=== PATIENT | male | born 1945 | race Caucasian/White ===

== ENCOUNTER 2019-08-13 09:13 | Outpatient (CLI) | payer MEDICARE, SELFPAY ==
[2019-08-13 09:30] LABS: Basophils Absolute Auto 0.06 K/mm3 (0.00-0.10); Basophils Percent Auto 0.9 % (0.0-1.0); Eosinophils Absolute Auto 0.12 K/mm3 (0.02-0.50); Eosinophils Percent Auto 1.8 % (1.0-6.0); Hematocrit 41.5 % (37.0-46.0); Hemoglobin 12.9 g/dL (12.4-15.3); Immature Granulocyte Absolute 0.06 K/mm3 (0.00-0.00); Immature Granulocyte Percent A 0.9 % (0.0-0.0); Lymphocytes Absolute Auto 1.94 K/mm3 (1.10-4.50); Lymphocytes Percent Auto 28.4 % (18.0-42.0); Mean Corpuscular HGB Conc 31.1 g/dL (32.0-36.0); Mean Platelet Volume 8.5 fl (8.7-11.0); Monocytes Absolute Auto 0.59 K/mm3 (0.10-0.90); Monocytes Percent Auto 8.6 % (2.0-11.0); Neutrophils Absolute Auto 4.1 K/mm3 (1.7-7.2); Neutrophils Percent Auto 59.4 % (50.0-70.0); Platelet Count Result 225 K/mm3 (150-420); Red Blood Count 4.77 M/mm3 (4.70-6.10); Red Cell Distribution Width 13.2 % (11.6-14.4); White Blood Count 6.8 K/mm3 (4.8-10.8)
[2019-08-13 09:40] LABS: Hemoglobin A1C 9.1 % (<5.7)
[2019-08-13 10:33] LABS: Alanine Aminotransferase 24 U/L (16-63); Albumin Level 3.9 g/dL (3.4-5.0); Alkaline Phosphatase 126 U/L (46-116); Anion Gap 13.8 mmol/L (7-16); Aspartate Amino Transferase 17 U/L (15-37); Bilirubin,Total 0.9 mg/dL (0.00-1.00); Blood Urea Nitrogen 23 mg/dL (7-18); Calcium 8.9 mg/dL (8.5-10.1); Carbon Dioxide 28 mmol/L (21-32); Chloride 104 mmol/L (98-108); Cholesterol 128 mg/dL (0-200); Estimated Glomerular Filt Rate 53; Glucose 193 mg/dL (70-99); HDL Direct 38 mg/dL (40-60); LDL Cholesterol Calculated 26 mg/dL (<130); Osmolality Calculated 300 mOsm/kg (285-295); Potassium 4.8 mmol/L (3.5-5.1); Sodium 141 mmol/L (136-145); Total Protein 6.7 g/dL (6.4-8.2); Triglycerides 318 mg/dL (0-150)
== END 2019-08-13 09:14 | disposition home or self-care (01) ==
PROVIDERS: PCP Internal Medicine; Visit Provider Internal Medicine
DX: E78.5 Hyperlipidemia, unspecified (principal); E11.9 Type 2 diabetes mellitus without complications
CPT/HCPCS: 36415; 80053; 80061; 83036; 85025

== ENCOUNTER 2019-11-05 08:34 | Outpatient (CLI) | payer MEDICARE, SELFPAY ==
[2019-11-05 08:54] LABS: Basophils Absolute Auto 0.06 K/mm3 (0.00-0.10); Basophils Percent Auto 0.8 % (0.0-1.0); Eosinophils Absolute Auto 0.15 K/mm3 (0.02-0.50); Hematocrit 36.9 % (37.0-46.0); Hemoglobin 11.2 g/dL (12.4-15.3); Immature Granulocyte Absolute 0.04 K/mm3 (0.00-0.00); Immature Granulocyte Percent A 0.5 % (0.0-0.0); Lymphocytes Absolute Auto 2.19 K/mm3 (1.10-4.50); Lymphocytes Percent Auto 29.4 % (18.0-42.0); Mean Corpuscular HGB Conc 30.4 g/dL (32.0-36.0); Mean Corpuscular Hemoglobin 25.9 pg (27.0-31.0); Mean Corpuscular Volume 85.4 fL (78.0-102.0); Mean Platelet Volume 8.5 fl (8.7-11.0); Monocytes Absolute Auto 0.64 K/mm3 (0.10-0.90); Monocytes Percent Auto 8.6 % (2.0-11.0); Neutrophils Absolute Auto 4.4 K/mm3 (1.7-7.2); Neutrophils Percent Auto 58.7 % (50.0-70.0); Platelet Count Result 277 K/mm3 (150-420); Red Blood Count 4.32 M/mm3 (4.70-6.10); Red Cell Distribution Width 15.2 % (11.6-14.4); White Blood Count 7.4 K/mm3 (4.8-10.8)
[2019-11-05 09:39] LABS: Alanine Aminotransferase 17 U/L (16-63); Albumin Level 3.5 g/dL (3.4-5.0); Alkaline Phosphatase 106 U/L (46-116); Anion Gap 12.4 mmol/L (7-16); Aspartate Amino Transferase 14 U/L (15-37); Bilirubin,Total 0.9 mg/dL (0.00-1.00); Blood Urea Nitrogen 23 mg/dL (7-18); Calcium 8.6 mg/dL (8.5-10.1); Carbon Dioxide 26 mmol/L (21-32); Chloride 105 mmol/L (98-108); Estimated Glomerular Filt Rate 46; Glucose 139 mg/dL (70-99); Osmolality Calculated 293 mOsm/kg (285-295); Potassium 4.4 mmol/L (3.5-5.1); Sodium 139 mmol/L (136-145); Total Protein 6.5 g/dL (6.4-8.2)
== END 2019-11-05 08:35 | disposition home or self-care (01) ==
PROVIDERS: PCP Internal Medicine; Visit Provider Internal Medicine
DX: D64.9 Anemia, unspecified (principal); N18.9 Chronic kidney disease, unspecified
CPT/HCPCS: 36415; 80053; 85025

== ENCOUNTER 2019-11-16 10:22 | Outpatient (CLI) | payer MEDICARE, SELFPAY | END 2019-11-16 10:23 | disposition home or self-care (01) | PROVIDERS: PCP Internal Medicine; Visit Provider Specialist | DX: L85.9 Epidermal thickening, unspecified (principal) | CPT/HCPCS: 88305 ==

== ENCOUNTER 2019-12-09 08:25 | Outpatient (CLI) | payer MEDICARE, SELFPAY ==
[2019-12-09 08:36] LABS: Basophils Absolute Auto 0.08 K/mm3 (0.00-0.10); Basophils Percent Auto 1.1 % (0.0-1.0); Eosinophils Percent Auto 1.4 % (1.0-6.0); Hematocrit 43.3 % (37.0-46.0); Hemoglobin 13.4 g/dL (12.4-15.3); Immature Granulocyte Absolute 0.06 K/mm3 (0.00-0.00); Immature Granulocyte Percent A 0.8 % (0.0-0.0); Lymphocytes Absolute Auto 2.59 K/mm3 (1.10-4.50); Mean Corpuscular HGB Conc 30.9 g/dL (32.0-36.0); Mean Corpuscular Volume 84.1 fL (78.0-102.0); Mean Platelet Volume 8.7 fl (8.7-11.0); Monocytes Absolute Auto 0.68 K/mm3 (0.10-0.90); Monocytes Percent Auto 9.2 % (2.0-11.0); Neutrophils Absolute Auto 3.9 K/mm3 (1.7-7.2); Neutrophils Percent Auto 52.5 % (50.0-70.0); Platelet Count Result 279 K/mm3 (150-420); Red Blood Count 5.15 M/mm3 (4.70-6.10); Red Cell Distribution Width 15.1 % (11.6-14.4); White Blood Count 7.4 K/mm3 (4.8-10.8)
[2019-12-09 08:54] LABS: Hemoglobin A1C 7.8 % (<5.7)
[2019-12-09 09:11] LABS: Alanine Aminotransferase 22 U/L (16-63); Albumin Level 3.7 g/dL (3.4-5.0); Alkaline Phosphatase 118 U/L (46-116); Anion Gap 11.6 mmol/L (7-16); Aspartate Amino Transferase 16 U/L (15-37); Bilirubin,Total 1.1 mg/dL (0.00-1.00); Blood Urea Nitrogen 21 mg/dL (7-18); Calcium 9.3 mg/dL (8.5-10.1); Carbon Dioxide 29 mmol/L (21-32); Chloride 104 mmol/L (98-108); Estimated Glomerular Filt Rate 46; Glucose 178 mg/dL (70-99); Osmolality Calculated 297 mOsm/kg (285-295); Potassium 4.6 mmol/L (3.5-5.1); Sodium 140 mmol/L (136-145)
== END 2019-12-09 08:26 | disposition home or self-care (01) ==
PROVIDERS: PCP Internal Medicine; Visit Provider Internal Medicine
DX: N18.3 Chronic kidney disease, stage 3 (moderate) (principal); E11.9 Type 2 diabetes mellitus without complications
CPT/HCPCS: 36415; 80053; 83036; 85025

== ENCOUNTER 2019-12-11 00:28 | Outpatient (CLI) | payer MEDICARE, SELFPAY ==
[2019-12-11 18:30] LABS: SARS-CoV-2 RNA PCR Negative
== END 2019-12-11 00:29 | disposition home or self-care (01) ==
LOC: ANHCOVIDDT 00:29
PROVIDERS: PCP Internal Medicine; Visit Provider Internal Medicine Gastroenterology
DX: Z01.812 Encounter for preprocedural laboratory examination (principal); Z11.59 Encounter for screening for other viral diseases
CPT/HCPCS: 87635; C9803; U0003

== ENCOUNTER 2019-12-14 01:50 | Day surgery (SDC) | payer MEDICARE, SELFPAY ==
[2019-12-06 14:27] VITALS: BMI 29.6
[2019-12-14 06:53] VITALS: BP 143/71; PULSE 88; RESP 16; TEMP 36.7; O2SAT 96; BMI 30.9
--- NOTE | 2019-12-14 07:02 | P.PNAN_ITS ---
Anes - Initial Pre Proc Eval Procedure: Operation Date: 12/14/19 08:00 Proposed Procedures p Screening Colonoscopy - Jonathan Duong MD Date/Time: 12/14/19 07:02 Surgeon: Jonathan Duong MD Pre Op Diagnosis: hx of Colon Polyps, fm hx of col ca Patient Data Age: 74 Gender: M Height: 1.75 m Weight: 95.1 kg Last Vital Signs Temp 36.7 C 12/14/19 06:53 Pulse 88 12/14/19 06:53 Resp 16 12/14/19 06:53 BP 143/71 H 12/14/19 06:53 Pulse Ox 96 12/14/19 06:53 Allergies Allergy/AdvReac Type Severity Reaction Status Date / Time No Known Allergies Verified 12/14/19 06:50 Home Medications Medication Instructions Recorded Confirmed Type insulin lispro [Humalog KwikPen 8 unit SUBCUT AC 12/06/19 12/14/19 History Insulin] metformin 500 mg PO DAILY 12/06/19 12/06/19 History metoprolol succinate 50 mg PO DAILY 12/06/19 12/06/19 History potassium citrate 10 meq PO DAILY 12/06/19 12/06/19 History rosuvastatin 10 mg PO DAILY 12/06/19 12/06/19 History tamsulosin 0.4 mg PO DAILY 12/06/19 12/06/19 History Patient hx anesthesia problems: none Family hx anesthesia problems: none [facility] Past Medical History Medical History (Updated 12/14/19 @ 07:02 by Temo Bowles DO) Diabetes type 2, controlled History of prostate cancer Hyperlipidemia Hypertension Surgical History Surgical History (Updated 12/14/19 @ 07:02 by Temo Bowles DO) History of coronary artery stent placement [id number], [id number] History of prostatectomy Hx of CABG x2, 2019 Anes - Eval Final PreProcedure Day of Procedure 12/14/19 07:02 Patient weight: obese Heart: regular rate and rhythm Lungs: clear to auscultation and normal air movement Airway: Mallampati scale class III Neurological: alert and oriented Last oral intake: >/= 8 hours ASA classification: III Emergent: no Anesthetic plan: proceed Anesthesia type and monitoring: general GIVS and standard monitoring Informed Consent: The patient's anesthetic plan and its attendant risks and benefits were discussed with the patient/family/POA. Questions were solicited and answers provided to the satisfaction of the patient/family/POA.
[2019-12-14] MEDS: LACTATED RINGERS 1,000 ML 150 ML IV CONT (07:05)
[2019-12-14 07:08] LABS: Glucose Point of Care 158 (65-105)
--- NOTE | 2019-12-14 07:50 | WPDGICN ---
Assessment and Plan Assessment and plan (1) Family history of colon cancer in father: Code(s): Z80.0 - Family history of malignant neoplasm of digestive organs Status: Acute Assessment and Plan: Patient's family history is significant that his father had colon cancer is sister has had colon polyps at 1 point patient had colon polyps on previous exam. Plan is for surveillance colonoscopy now on a 5 year intervals in the future. (2) Hx of CABG: Code(s): Z95.1 - Presence of aortocoronary bypass graft Status: Acute (3) History of coronary artery stent placement: Code(s): Z95.5 - Presence of coronary angioplasty implant and graft Status: Acute GI Consult Note Consult date/time: 12/14/19 07:50 HPI: Xochilt Washburn is a 74 year old male Seen in evaluation at the request of Dr. Arambula. patient presents for screening colonoscopy he states his current weight appetite bowel movements are normal. He has a distant history of colon polyps himself. Family history is significant that his father had colon cancer and a sister has had colon polyps. Patient states that his current weight appetite bowel movements are normal. He denies abdominal pain. Denies any obvious blood in his stools. Review of Systems Review of Systems: All systems reviewed & are unremarkable except as noted in HPI and below PMFSH Past Medical History Medical History Diabetes type 2, controlled History of prostate cancer Hyperlipidemia Hypertension Surgical History Surgical History History of coronary artery stent placement [id number], [id number] History of prostatectomy Hx of CABG x2, 2019 Meds Home Medications and Allergies Home Medications Medication Instructions Recorded Confirmed Type insulin lispro [Humalog KwikPen 8 unit SUBCUT AC 12/06/19 12/14/19 History Insulin] metformin 500 mg PO DAILY 12/06/19 12/06/19 History metoprolol succinate 50 mg PO DAILY 12/06/19 12/06/19 History potassium citrate 10 meq PO DAILY 12/06/19 12/06/19 History rosuvastatin 10 mg PO DAILY 12/06/19 12/06/19 History tamsulosin 0.4 mg PO DAILY 12/06/19 12/06/19 History Allergies Allergy/AdvReac Type Severity Reaction Status Date / Time No Known Allergies Verified 12/14/19 06:50 Vital Signs Vital Signs - 24 hr 12/14/19 06:53 Temperature 98.1 F Pulse Rate 88 Respiratory Rate 16 Blood Pressure 143/71 H Pulse Oximetry 96 Exam Narrative: Exam Narrative: Physical exam reveals patient to be alert. Vital signs stable. HEENT exam unremarkable. Lungs are clear to auscultation and percussion. Heart is without murmur or extra sounds. Abdominal exam bowel sounds are present soft nontender with no hepatosplenomegaly. Digital external rectal exam normal.
[2019-12-14] MEDS: SIMETHICONE ORAL SUSPENSION 20 MG/0.3 ML 30 ML BOTTLE 0.6 ML IRRIGATION (08:07)
[2019-12-14 08:19] VITALS: BP 125/63; PULSE 88; RESP 16; O2SAT 96
[2019-12-14 08:29] VITALS: BP 129/71; PULSE 83; RESP 20; O2SAT 96
[2019-12-14 08:39] VITALS: BP 134/79; PULSE 76; RESP 22; O2SAT 99
[2019-12-14 08:40] LABS: Glucose Point of Care 146 (65-105)
== END 2019-12-14 08:52 | disposition home or self-care (01) ==
PROVIDERS: PCP Internal Medicine; Visit Provider Internal Medicine Gastroenterology
PROC: 0DJD8ZZ Inspection of Lower Intestinal Tract, Via Natural or Artificial Opening Endoscopic (ICD-10-PCS; CPT 45378; principal; 2019-12-14 08:00)
DX: Z12.11 Encounter for screening for malignant neoplasm of colon (principal); D12.5 Benign neoplasm of sigmoid colon; Z80.0 Family history of malignant neoplasm of digestive organs; Z95.1 Presence of aortocoronary bypass graft; Z95.5 Presence of coronary angioplasty implant and graft; Z83.71 Family history of colonic polyps; I10 Essential (primary) hypertension; E78.5 Hyperlipidemia, unspecified; E11.9 Type 2 diabetes mellitus without complications; Z85.46 Personal history of malignant neoplasm of prostate; Z79.84 Long term (current) use of oral hypoglycemic drugs; Z79.4 Long term (current) use of insulin; E66.9 Obesity, unspecified; Z68.31 Body mass index [BMI] 31.0-31.9, adult
CPT/HCPCS: 45385; 88305; J2704; J7120

== ENCOUNTER 2020-05-25 09:33 | Outpatient (CLI) | payer MEDICARE, SELFPAY ==
[2020-05-25 09:43] LABS: Basophils Absolute Auto 0.06 K/mm3 (0.00-0.10); Basophils Percent Auto 0.8 % (0.0-1.0); Eosinophils Absolute Auto 0.09 K/mm3 (0.02-0.50); Eosinophils Percent Auto 1.2 % (1.0-6.0); Hematocrit 43.2 % (37.0-46.0); Hemoglobin 13.8 g/dL (12.4-15.3); Immature Granulocyte Absolute 0.06 K/mm3 (0.00-0.00); Immature Granulocyte Percent A 0.8 % (0.0-0.0); Lymphocytes Absolute Auto 2.31 K/mm3 (1.10-4.50); Lymphocytes Percent Auto 31.3 % (18.0-42.0); Mean Corpuscular HGB Conc 31.9 g/dL (32.0-36.0); Mean Corpuscular Hemoglobin 27.2 pg (27.0-31.0); Mean Platelet Volume 8.7 fl (8.7-11.0); Monocytes Absolute Auto 0.71 K/mm3 (0.10-0.90); Monocytes Percent Auto 9.6 % (2.0-11.0); Neutrophils Absolute Auto 4.2 K/mm3 (1.7-7.2); Neutrophils Percent Auto 56.3 % (50.0-70.0); Platelet Count Result 247 K/mm3 (150-420); Red Blood Count 5.08 M/mm3 (4.70-6.10); Red Cell Distribution Width 14.3 % (11.6-14.4); White Blood Count 7.4 K/mm3 (4.8-10.8)
[2020-05-25 09:55] LABS: Hemoglobin A1C 9.4 % (<5.7)
[2020-05-25 12:07] LABS: Alanine Aminotransferase 21 U/L (16-63); Albumin Level 3.7 g/dL (3.4-5.0); Alkaline Phosphatase 114 U/L (46-116); Anion Gap 11 mmol/L (8-16); Aspartate Amino Transferase 13 U/L (15-37); Bilirubin,Total 1.2 mg/dL (0.00-1.00); Blood Urea Nitrogen 20 mg/dL (7-18); Calcium 8.8 mg/dL (8.5-10.1); Carbon Dioxide 25 mmol/L (21-32); Chloride 103 mmol/L (98-108); Cholesterol 146 mg/dL (0-200); Estimated Glomerular Filt Rate 51; Glucose 204 mg/dL (70-99); HDL Direct 42 mg/dL (40-60); LDL Cholesterol Calculated 56 mg/dL (<130); Osmolality Calculated 296 mOsm/kg (285-295); Potassium 4.3 mmol/L (3.5-5.1); Sodium 139 mmol/L (136-145); Total Protein 6.9 g/dL (6.4-8.2); Triglycerides 239 mg/dL (0-150)
== END 2020-05-25 09:34 | disposition home or self-care (01) ==
LOC: CHSLAB 09:34
PROVIDERS: PCP Internal Medicine; Visit Provider Internal Medicine
DX: D64.9 Anemia, unspecified (principal); N18.2 Chronic kidney disease, stage 2 (mild); E11.9 Type 2 diabetes mellitus without complications
CPT/HCPCS: 36415; 80053; 80061; 83036; 85025

== ENCOUNTER 2020-06-13 13:58 | Outpatient (CLI) | payer MEDICARE, SELFPAY ==
--- NOTE | ~2020-06-13 | US_ITS ---
EXAMINATION: US carotid duplex BI DATE: 06/13/2020 14:53 INDICATION: Atherosclerosis. Left upper extremity tremor. TECHNIQUE: Grayscale, color Doppler, and pulsed Doppler images of the cervical carotid arteries were obtained. The degree of vessel stenosis is placed in one of the following categories: normal, <50%, 5 0-69%, >=70% but less than near-occlusion, near-occlusion, or total occlusion. Note that percent sten osis relative to normal distal artery lumen diameter is indirectly measured from velocity measurement s as described by Suhail, et al. Radiology 2003; 229:340-346. Notes: Normal: Peak systolic velocity <125 centimeters/sec and no plaque <50%. Peak systolic velocity <125 ( EDV <40; ICA/CCA PSV ratio <2.0; used these factors only a tandem lesions or low cardiac output or co ntralateral disease) 50-69 %: PSV 125-230 (EDV 40-100; ratio 2-4) >= 70% but less than near occlusion: PSV greater than 230 (EDV > 100; ratio> 4.0) Near Occlusion: PSV that is variable; markedly narrowed lumen Occlusion: Absent flow on color/spectral Doppler and no lumen on de santiago scale. COMPARISON: Ultrasound dated 01/16/2012. FINDINGS: RIGHT: The right common carotid artery (CCA) peak systolic velocity (PSV) is 108 cm/s. The right internal ca rotid artery (ICA) PSV is 119 cm/s. The right ICA end-diastolic velocity (EDV) is 42 cm/s. The right ICA/CCA PSV ratio is 1.1. The external carotid artery (ECA) PSV is 124 cm/s. There is antegrade flow in the right vertebral artery. LEFT: The left CCA PSV is 125 cm/s. The left ICA PSV is 111 cm/s. The left ICA EDV is 28 cm/s. The left ICA /CCA PSV ratio is 0.9. The ECA PSV is 138 cm/s. There is antegrade flow in the left vertebral artery . IMPRESSION: 1. Less than 50% stenosis in the right internal carotid artery by sonographic criteria. 2. Less than 50% stenosis in the left internal carotid artery by sonographic criteria. Reviewed, dictated and finalized at location A. CTOR OF SOLUTIONS ARCHITECTURE IMPRESSION: 1. Less than 50% stenosis in the right internal carotid artery by sonographic christopher greer. 2. Less than 50% stenosis in the left internal carotid artery by sonographic alec kinney.
== END 2020-06-13 13:59 | disposition home or self-care (01) ==
LOC: CHSIMG 13:59
PROVIDERS: PCP Internal Medicine; Visit Provider Internal Medicine
DX: I67.9 Cerebrovascular disease, unspecified (principal); E11.9 Type 2 diabetes mellitus without complications; R25.1 Tremor, unspecified; I25.10 Atherosclerotic heart disease of native coronary artery without angina pectoris; I65.29 Occlusion and stenosis of unspecified carotid artery
CPT/HCPCS: 93880

== ENCOUNTER 2020-06-17 07:16 | Outpatient (CLI) | payer MEDICARE, SELFPAY ==
--- NOTE | ~2020-06-17 | MR_ITS ---
EXAMINATION: MR brain/brain stem wo con DATE: 06/17/2020 09:46 INDICATION: Left upper extremity tremor. TECHNIQUE: Magnetic resonance imaging (MRI) of the brain and brainstem was performed without intraven ous contrast. Sequences included sagittal and axial T1-weighted FSE, axial diffusion-weighted FS EPI, axial T2*-weighted GRE, axial T2-weighted FLAIR Propeller, and axial T2-weighted Propeller. Apparent diffusion coefficient (ADC) maps were created. COMPARISON: None. FINDINGS: There is a small focus of chronic encephalomalacia in the right frontal lobe centrum semiov candace. There is no intracranial hemorrhage, acute infarction, or abnormal intracranial mass lesion. The ventricles are normal in size. There is mild mucosal thickening in the ethmoid sinuses. The orbits a re normal. The mastoid air cells are normal. IMPRESSION: 1. Small focus of chronic encephalomalacia in the right frontal lobe centrum semiovale. Reviewed, dictated and finalized at location A. ING RINK MANAGER IMPRESSION: 1. Small focus of chronic encephalomalacia in the right frontal lobe centrum se miovale.
== END 2020-06-17 07:17 | disposition home or self-care (01) ==
LOC: CHSIMG 07:19
PROVIDERS: PCP Internal Medicine; Visit Provider Internal Medicine
DX: R25.1 Tremor, unspecified (principal)
CPT/HCPCS: 70551

== ENCOUNTER 2020-09-29 08:26 | Outpatient (CLI) | payer MEDICARE, SELFPAY ==
[2020-09-29 08:54] LABS: Hemoglobin A1C 10.6 % (<5.7)
[2020-09-29 10:29] LABS: Alanine Aminotransferase 22 U/L (16-63); Albumin Level 3.5 g/dL (3.4-5.0); Alkaline Phosphatase 117 U/L (46-116); Anion Gap 4 mmol/L (8-16); Aspartate Amino Transferase 10 U/L (15-37); Bilirubin,Total 1.2 mg/dL (0.00-1.00); Blood Urea Nitrogen 25 mg/dL (7-18); Calcium 8.9 mg/dL (8.5-10.1); Carbon Dioxide 30 mmol/L (21-32); Chloride 104 mmol/L (98-108); Estimated Glomerular Filt Rate 53; Glucose 214 mg/dL (70-99); Osmolality Calculated 296 mOsm/kg (285-295); Potassium 4.7 mmol/L (3.5-5.1); Sodium 138 mmol/L (136-145); Thyroid Stimulating Hormone 3.47 uIU/mL (0.36-3.74); Total Protein 6.5 g/dL (6.4-8.2)
== END 2020-09-29 08:27 | disposition home or self-care (01) ==
LOC: CHSLAB 08:29
PROVIDERS: PCP Internal Medicine; Visit Provider Internal Medicine
DX: E11.65 Type 2 diabetes mellitus with hyperglycemia (principal)
CPT/HCPCS: 36415; 80053; 83036; 84443

== ENCOUNTER 2021-01-29 07:15 | Outpatient (CLI) | payer MEDICARE, SELFPAY ==
[2021-01-29 07:38] LABS: Basophils Absolute Auto 0.03 K/mm3 (0.00-0.10); Basophils Percent Auto 0.4 % (0.0-1.0); Eosinophils Absolute Auto 0.04 K/mm3 (0.02-0.50); Eosinophils Percent Auto 0.5 % (1.0-6.0); Hematocrit 48.1 % (37.0-46.0); Immature Granulocyte Absolute 0.06 K/mm3 (0.00-0.00); Immature Granulocyte Percent A 0.8 % (0.0-0.0); Lymphocytes Absolute Auto 2.09 K/mm3 (1.10-4.50); Lymphocytes Percent Auto 28.6 % (18.0-42.0); Mean Corpuscular HGB Conc 31.2 g/dL (32.0-36.0); Mean Corpuscular Hemoglobin 27.9 pg (27.0-31.0); Mean Corpuscular Volume 89.4 fL (78.0-102.0); Monocytes Absolute Auto 0.83 K/mm3 (0.10-0.90); Monocytes Percent Auto 11.4 % (2.0-11.0); Neutrophils Absolute Auto 4.3 K/mm3 (1.7-7.2); Neutrophils Percent Auto 58.3 % (50.0-70.0); Platelet Count Result 243 K/mm3 (150-420); Red Blood Count 5.38 M/mm3 (4.70-6.10); Red Cell Distribution Width 13.9 % (11.6-14.4); White Blood Count 7.3 K/mm3 (4.8-10.8)
[2021-01-29 08:08] LABS: Hemoglobin A1C 8.8 % (<5.7)
[2021-01-29 08:59] LABS: Alanine Aminotransferase 33 U/L (16-63); Albumin Level 3.8 g/dL (3.4-5.0); Alkaline Phosphatase 100 U/L (46-116); Aspartate Amino Transferase 22 U/L (15-37); Bilirubin,Total 1.3 mg/dL (0.00-1.00); Blood Urea Nitrogen 24 mg/dL (7-18); Calcium 8.4 mg/dL (8.5-10.1); Carbon Dioxide 26 mmol/L (21-32); Cholesterol 116 mg/dL (0-200); Estimated Glomerular Filt Rate 53; Glucose 74 mg/dL (70-99); HDL Direct 41 mg/dL (40-60); LDL Cholesterol Calculated 50 mg/dL (<130); Thyroid Stimulating Hormone 3.95 uIU/mL (0.36-3.74); Total Protein 6.6 g/dL (6.4-8.2); Triglycerides 123 mg/dL (0-150)
[2021-01-29 13:39] LABS: Anion Gap 5 mmol/L (8-16); Chloride 108 mmol/L (98-107); Osmolality Calculated 291 mOsm/kg (285-295); Potassium 4.1 mmol/L (3.4-5.0); Sodium 139 mmol/L (137-145)
== END 2021-01-29 07:16 | disposition home or self-care (01) ==
LOC: CHSLAB 07:17
PROVIDERS: PCP Internal Medicine; Visit Provider Internal Medicine
DX: E11.9 Type 2 diabetes mellitus without complications (principal)
CPT/HCPCS: 36415; 80053; 80061; 83036; 84443; 85025

== ENCOUNTER 2021-05-01 10:27 | Outpatient (CLI) | payer MEDICARE, SELFPAY | END 2021-05-01 10:28 | disposition home or self-care (01) | LOC: CHSLAB 10:31 | PROVIDERS: PCP Internal Medicine; Visit Provider Specialist | DX: D22.5 Melanocytic nevi of trunk (principal); L82.1 Other seborrheic keratosis | CPT/HCPCS: 88305 ==

== ENCOUNTER 2021-06-05 09:21 | Outpatient (CLI) | payer MEDICARE, SELFPAY ==
[2021-06-05 09:48] LABS: Hemoglobin A1C 8.7 % (<5.7)
[2021-06-05 10:15] LABS: Alanine Aminotransferase 24 U/L (16-63); Albumin Level 3.7 g/dL (3.4-5.0); Alkaline Phosphatase 129 U/L (46-116); Anion Gap 11 mmol/L (8-16); Aspartate Amino Transferase 14 U/L (15-37); Bilirubin,Total 1.1 mg/dL (0.00-1.00); Blood Urea Nitrogen 24 mg/dL (7-18); Calcium 9.1 mg/dL (8.5-10.1); Carbon Dioxide 25 mmol/L (21-32); Chloride 104 mmol/L (98-108); Estimated Glomerular Filt Rate 50; Glucose 134 mg/dL (70-99); Osmolality Calculated 296 mOsm/kg (285-295); Potassium 4.2 mmol/L (3.5-5.1); Sodium 140 mmol/L (136-145); Total Protein 7.2 g/dL (6.4-8.2)
== END 2021-06-05 09:22 | disposition home or self-care (01) ==
LOC: CHSLAB 09:23
PROVIDERS: PCP Internal Medicine; Visit Provider Internal Medicine
DX: E11.9 Type 2 diabetes mellitus without complications (principal)
CPT/HCPCS: 36415; 80053; 83036

== ENCOUNTER 2021-12-03 16:03 | Outpatient (CLI) | payer MEDICARE, SELFPAY ==
--- NOTE | ~2021-12-03 | XR_ITS ---
EXAMINATION: XR chest 2V 12/03/2021 16:17 INDICATION: Cough for one month. PROCEDURE: 2 view chest COMPARISON: 04/19/2017 FINDINGS: The lungs are clear. The cardiomediastinal silhouette is within normal limits. There are no pleural effusions. There is no pneumothorax suspected. Status post median sternotomy for CABG. IMPRESSION: 1: NO ACUTE CARDIOPULMONARY DISEASE. Reviewed, dictated and finalized at location A.
== END 2021-12-03 16:04 | disposition home or self-care (01) ==
LOC: CHSIMG 16:06
PROVIDERS: PCP Internal Medicine; Visit Provider Internal Medicine
DX: R05.9 Cough, unspecified (principal)
CPT/HCPCS: 71046

== ENCOUNTER 2021-12-17 10:52 | Outpatient (CLI) | payer MEDICARE, SELFPAY ==
[2021-12-17 11:13] LABS: Hematocrit 47.2 % (37.0-46.0); Mean Corpuscular HGB Conc 31.8 g/dL (32.0-36.0); Mean Corpuscular Hemoglobin 27.6 pg (27.0-31.0); Mean Corpuscular Volume 86.9 fL (78.0-102.0); Mean Platelet Volume 8.5 fl (8.7-11.0); Platelet Count Result 262 K/mm3 (150-420); Red Blood Count 5.43 M/mm3 (4.70-6.10); Red Cell Distribution Width 14.5 % (11.6-14.4); White Blood Count 8.3 K/mm3 (4.8-10.8)
[2021-12-17 11:49] LABS: Band Neutrophils Percent 0 % (0-6); Neutrophils Percent Manual 70 % (46-73); Total Cells Counted 100
[2021-12-17 11:50] LABS: Basophils Percent Manual 0 % (0-1); Eosinophils Percent Manual 0 % (1-6); Lymphocytes Absolute Manual 1.66 K/mm3 (1.1-4.5); Lymphocytes Percent Manual 20 % (18-44); Metamyelocytes Percent 2 %; Monocytes Absolute Manual 0.49 K/mm3 (0.1-0.90); Monocytes Percent Manual 6 % (3-9); Myelocytes Percent 2 %; Neutrophils Absolute Manual 5.81 K/mm3 (1.3-6.7); Platelet Estimate Adequate (Adequate)
[2021-12-17 12:43] LABS: Alanine Aminotransferase 20 U/L (16-63); Albumin Level 3.7 g/dL (3.4-5.0); Alkaline Phosphatase 136 U/L (46-116); Anion Gap 9 mmol/L (8-16); Aspartate Amino Transferase 14 U/L (15-37); Bilirubin,Total 0.7 mg/dL (0.00-1.00); Blood Urea Nitrogen 25 mg/dL (7-18); CRP 4.2 mg/dL (0.0-0.9); Calcium 9.3 mg/dL (8.5-10.1); Carbon Dioxide 29 mmol/L (21-32); Chloride 105 mmol/L (98-108); Cholesterol 162 mg/dL (0-200); Estimated Glomerular Filt Rate 52; Glucose 181 mg/dL (70-99); HDL Direct 42 mg/dL (40-60); LDL Cholesterol Calculated 71 mg/dL (<130); Osmolality Calculated 305 mOsm/kg (285-295); Potassium 4.6 mmol/L (3.5-5.1); Sodium 143 mmol/L (136-145); Total Protein 7.1 g/dL (6.4-8.2); Triglycerides 246 mg/dL (0-150)
[2021-12-17 12:47] LABS: Hemoglobin A1C 8.3 % (<5.7)
== END 2021-12-17 10:53 | disposition home or self-care (01) ==
LOC: CHSLAB 10:56
PROVIDERS: PCP Internal Medicine
DX: E78.2 Mixed hyperlipidemia (principal); Z79.899 Other long term (current) drug therapy; M25.50 Pain in unspecified joint; E11.9 Type 2 diabetes mellitus without complications
CPT/HCPCS: 36415; 80053; 80061; 83036; 84550; 85025; 86038; 86039; 86140

== ENCOUNTER 2022-01-21 13:07 | Outpatient (CLI) | payer MEDICARE, SELFPAY ==
--- NOTE | ~2022-01-21 | PE_ITS ---
EXAMINATION: PET_PETPSMAST_PT DATE: 01/21/2022 15:53 INDICATION: Adenocarcinoma of prostate. TECHNIQUE: 8.915 mCi of piflufolastat F-18 was administered i.v. Low dose computed tomography (CT) im ages were acquired from the base of the brain to the proximal thighs for attenuation correction and a natomic localization. Automated exposure control was employed. Dose-length product (DLP) was 1063 mGy -cm. Positron emission tomography (PET) images were acquired in the same distribution. COMPARISON: None FINDINGS: Head/neck: There are no pathologically enlarged lymph nodes. Chest: No pulmonary nodule or pleural effusion. The heart size is normal. There are coronary artery c alcifications. No pericardial effusion. A normal-sized node in aorticopulmonary window demonstrates m aximum SUV of 2.9. Median sternotomy wires are noted. Abdomen/pelvis/proximal thighs: The liver and spleen are normal. There are changes of cholecystectomy . The pancreas and adrenal glands are normal. There are cysts in the kidneys measuring up to 3.3 cm o n the left. There is left inguinal hernia containing fat. The prostate is mildly enlarged. There are brachytherapy seeds in the prostate. There are no dilated loops of bowel. There is increased activity in a normal-sized right external iliac node. There is increased activity in enlarged left external i liac lymph nodes. For example, a 2.5 x 1.4 cm left external iliac node demonstrates maximum SUV of 9. 1. There is no free intraperitoneal fluid. There is mildly increased activity in L3 and L4 vertebral bodies without abnormal CT correlate. IMPRESSION: 1. Increased activity in bilateral external iliac lymph nodes, which are enlarged on the left, consis tent with metastatic disease. 2. Mildly increased activity in L3 and L4 vertebral bodies without abnormal CT correlate, which is in determinate for metastatic disease. 3. Normal-sized mediastinal lymph node with increased activity, which is indeterminate for metastatic disease. Reviewed, dictated and finalized at location A. IMPRESSION: 1. Increased activity in bilateral external iliac lymph nodes, which are enlarg ed on the left, consistent with metastatic disease. 2. Mildly increased activity in L3 and L4 vertebral bodies without abnormal CT correlate, which is indeterminate for metastatic disease. 3. Normal-sized mediastinal lymph node with increased activity, which is indete rminate for metastatic disease.
== END 2022-01-21 13:08 | disposition home or self-care (01) ==
PROVIDERS: PCP Internal Medicine; Visit Provider Urology
DX: C61 Malignant neoplasm of prostate (principal)
CPT/HCPCS: 78815; A9595

== ENCOUNTER 2022-05-28 09:36 | Outpatient (CLI) | payer MEDICARE, SELFPAY ==
[2022-05-28 10:21] LABS: Hemoglobin A1C 10.6 % (<5.7)
[2022-05-28 10:49] LABS: Alanine Aminotransferase 16 U/L (16-63); Albumin Level 3.4 g/dL (3.4-5.0); Alkaline Phosphatase 123 U/L (46-116); Anion Gap 10 mmol/L (8-16); Aspartate Amino Transferase 10 U/L (15-37); Bilirubin,Total 0.9 mg/dL (0.00-1.00); Blood Urea Nitrogen 37 mg/dL (7-18); Calcium 9.2 mg/dL (8.5-10.1); Carbon Dioxide 28 mmol/L (21-32); Chloride 101 mmol/L (98-108); Estimated Glomerular Filt Rate 54; Glucose 266 mg/dL (70-99); Osmolality Calculated 305 mOsm/kg (285-295); Sodium 139 mmol/L (136-145); Total Protein 6.9 g/dL (6.4-8.2)
== END 2022-05-28 09:37 | disposition home or self-care (01) ==
LOC: CHSLAB 09:38
PROVIDERS: PCP Internal Medicine; Visit Provider Internal Medicine
DX: E11.65 Type 2 diabetes mellitus with hyperglycemia (principal)
CPT/HCPCS: 36415; 80053; 83036; 86140

== ENCOUNTER 2023-03-01 10:12 | Emergency (ER) | payer MEDICARE, SELFPAY ==
[2023-03-01 10:25] VITALS: BP 109/66; PULSE 108; RESP 20; TEMP 36.1; O2SAT 99
[2023-03-01 10:26] VITALS: BP 109/66; PULSE 108; RESP 20; TEMP 36.1; O2SAT 99
--- NOTE | 2023-03-01 10:52 | ED.MALEGU ---
HPI - Male Genitourinary General Chief complaint: Urogenital-Male Stated complaint: Male Urogenital Source: patient and RN notes reviewed Mode of arrival: ambulatory Limitations: no limitations History of Present Illness HPI Narrative: 77-year-old male with a history of prostate cancer presented for complaint of urinary frequency, urgency, hesitancy, and dysuria over the past 10 days. He endorses 2 nights ago he was up 10 times to urinate in the night. Also reports a few days ago he had some nausea and vomiting, which has resolved. He denies hematuria, abdominal pain flank pain, fevers or chills. Scheduled with urologist this week. Related Data Home Medications Medication Instructions Recorded Confirmed insulin lispro 100 unit/mL 8 unit subcut AC 12/06/19 03/01/23 subcutaneous pen (Humalog KwikPen (U-100) Insulin) metoprolol succinate 50 mg 50 mg PO DAILY 12/06/19 03/01/23 tablet,extended release 24 hr potassium citrate 10 mEq (1,080 10 meq PO DAILY 12/06/19 03/01/23 mg) tablet,extended release rosuvastatin 10 mg tablet 10 mg PO DAILY 12/06/19 03/01/23 tamsulosin 0.4 mg capsule 0.4 mg PO DAILY 12/06/19 03/01/23 blood sugar diagnostic (True 03/01/23 03/01/23 Metrix Glucose Test Strip) empagliflozin 25 mg tablet 25 mg PO DAILY 03/01/23 03/01/23 (Jardiance) prednisone 5 mg tablet 7.5 mg PO DAILY 03/01/23 03/01/23 semaglutide 2 mg/dose (8 mg/3 mL) 2 mg subcut WEEKLY 03/01/23 03/01/23 subcutaneous pen injector (Ozempic) Allergies Allergy/AdvReac Type Severity Reaction Status Date / Time No Known Allergies Verified 03/01/23 10:23 Review of Systems Review of Systems: CONSTITUTIONAL: Denies body aches, fever, chills, or sweats. CARDIOVASCULAR: Denies chest pain, palpitations, or edema. RESPIRATORY: Denies cough or dyspnea. GASTROINTESTINAL: Denies abdominal pain, nausea, vomiting, or diarrhea. GENITOURINARY: Reports dysuria, frequency, urgency, denies hematuria, flank pain SKIN: Denies rash, itching, or wounds. MUSCULOSKELETAL: Denies back pain or myalgia. [facility] Past Medical History Medical History Diabetes type 2, controlled History of prostate cancer Hyperlipidemia Hypertension Surgical History Surgical History History of coronary artery stent placement [id number], [id number] History of prostatectomy Hx of CABG x2, 2020 Comments At time of signature, I have reviewed and agree with nursing past medical, surgical, social and family history unless otherwise noted. Please see nursing chart for further information. There is no relevant family history pertinent to the presenting complaint Exam Narrative: GENERAL: Well-appearing and in no acute distress. HEAD: Normocephalic EYES: EOMI. . ENT: Mucous membranes pink and moist. NECK: Normal AROM. Supple. CHEST: No respiratory distress. Clear to auscultation. HEART: Regular rate and rhythm. ABDOMEN: Soft, nontender, nondistended, normal active bowel sounds. No CVA tenderness MUSCULOSKELETAL: No bony tenderness. SKIN: Warm, dry, no rash. NEURO: No focal deficits. Alert and oriented x3. Gait steady. PSYCH: Normal affect. Course Course Emergency Course: Patient is aware of diagnosis, understands and agrees to treatment plan. Anticipatory guidance given. Patient agrees to follow-up as directed and is aware of reasons to seek care at the emergency department. Portions of this record may have been created with voice recognition software Level of Care: Express Care Visit Vital Signs Vital signs: Vital Signs Temperature 96.9 F L 03/01/23 10:25 Pulse Rate 108 H 03/01/23 10:25 Respiratory Rate 20 03/01/23 10:25 Blood Pressure 109/66 03/01/23 10:25 Pulse Oximetry 99 03/01/23 10:25 Oxygen Delivery Room Air 03/01/23 10:25 Temperature 96.9 F L 03/01/23 10:26 Pulse Rate 108 H 03/01/23 1
== END 2023-03-01 11:05 | disposition home or self-care (01) ==
PROVIDERS: Emergency Provider Nurse Practitioner Family; PCP Internal Medicine
DX: N39.0 Urinary tract infection, site not specified (principal); E11.9 Type 2 diabetes mellitus without complications; Z79.4 Long term (current) use of insulin; E78.5 Hyperlipidemia, unspecified; I10 Essential (primary) hypertension; I25.10 Atherosclerotic heart disease of native coronary artery without angina pectoris; Z95.5 Presence of coronary angioplasty implant and graft; Z85.46 Personal history of malignant neoplasm of prostate; Z90.79 Acquired absence of other genital organ(s)
CPT/HCPCS: 81003; 87077; 87086; 87088; 99213; G0463

== ENCOUNTER 2023-05-03 13:56 | Emergency (ER) | payer MEDICARE, SELFPAY ==
--- NOTE | 2023-05-03 14:13 | ED.WOUNDLAC ---
HPI - Wound/Laceration General Chief Complaint: Wound/Laceration Stated Complaint: laceration upper extermity Time Seen by Provider: 05/03/23 14:45 Source: patient Mode of arrival: ambulatory Limitations: no limitations History of Present Illness HPI narrative: Mr. Washburn is a 77-year-old male patient presenting to the clinic today with complaints of a laceration to the left forearm. He reports he fell at 4:00 a.m. in the morning 8-10 days ago and this caused a skin tear to his left forearm. He reports he has been doctoring at home. Tetanus is up-to-date per patient. Is wanting to have a wound check to make sure is not infected. He is diabetic. Related Data Home Medications Medication Instructions Recorded Confirmed insulin lispro 100 unit/mL 8 unit subcut AC 12/06/19 03/01/23 subcutaneous pen (Humalog KwikPen (U-100) Insulin) metoprolol succinate 50 mg 50 mg PO DAILY 12/06/19 03/01/23 tablet,extended release 24 hr potassium citrate 10 mEq (1,080 10 meq PO DAILY 12/06/19 03/01/23 mg) tablet,extended release rosuvastatin 10 mg tablet 10 mg PO DAILY 12/06/19 03/01/23 tamsulosin 0.4 mg capsule 0.4 mg PO DAILY 12/06/19 03/01/23 blood sugar diagnostic (True 03/01/23 03/01/23 Metrix Glucose Test Strip) empagliflozin 25 mg tablet 25 mg PO DAILY 03/01/23 03/01/23 (Jardiance) prednisone 5 mg tablet 7.5 mg PO DAILY 03/01/23 03/01/23 semaglutide 2 mg/dose (8 mg/3 mL) 2 mg subcut WEEKLY 03/01/23 03/01/23 subcutaneous pen injector (Ozempic) Allergies Allergy/AdvReac Type Severity Reaction Status Date / Time No Known Allergies Verified 03/01/23 10:23 Review of Systems Review of Systems: Pertinent positives per HPI. Patient denies any fever, chills, rash, headache, visual changes, dizziness, cough, runny nose, sore throat, shortness of breath, chest pain, palpitations, nausea, vomiting, diarrhea, constipation, abdominal pain, or any urinary issues. [facility] Past Medical History Medical History (Updated 05/03/23 @ 14:57 by Vijay Naik APRN) Diabetes type 2, controlled History of prostate cancer Hyperlipidemia Hypertension Surgical History Surgical History History of coronary artery stent placement [id number], [id number] History of prostatectomy Hx of CABG x2, 2020 Comments At the time of my signature, I reviewed and agree with the nursing past medical, surgical, social, and family history. There is no relevant family history pertinent to the patient complaint. Exam Narrative: General: Well-developed, well nourished, in no apparent distress Head: Normocephalic, atraumatic. Cardio: Regular rate and rhythm, s1 and s2 normal, no murmur appreciated. Resp: Clear to auscultation bilaterally, no rhonchi, rales, wheezing or rubs. Integumentary: [place], warm, and dry, has a 1 x 1 cm skin tear to the left distal forearm near the wrist and a 2 cm by 0.5 cm skin tear to the mid forearm-no obvious redness or swelling. Course Course Emergency Course: Portions of this record may have been created with voice recognition software. Level of Care: Express Care Visit Vital Signs Vital signs: Vital Signs Temperature 36.6 C 05/03/23 14:42 Pulse Rate 96 05/03/23 14:42 Respiratory Rate 18 05/03/23 14:42 Blood Pressure 122/63 05/03/23 14:42 Pulse Oximetry 96 05/03/23 14:42 Oxygen Delivery Room Air 05/03/23 14:42 Temperature 36.6 C 05/03/23 14:42 Pulse Rate 96 05/03/23 14:42 Respiratory Rate 18 05/03/23 14:42 Blood Pressure 122/63 05/03/23 14:42 Pulse Oximetry 96 05/03/23 14:42 Oxygen Delivery Room Air 05/03/23 14:42 Vital signs reviewed MDM - Wound/Laceration MDM Narrative Medical decision making narrative: At the time of visit patient is resting comfortably on the exam table. Patient appears to be nontoxic. Wound was cleansed and mild debridement of tissue was performed around the s
[2023-05-03 14:42] VITALS: BP 122/63; PULSE 96; RESP 18; TEMP 36.6; O2SAT 96
--- NOTE | 2023-05-03 14:58 | PC.NURSE ---
wound cleansed and dressed by provider
== END 2023-05-03 15:03 | disposition home or self-care (01) ==
PROVIDERS: Emergency Provider Nurse Practitioner Family; PCP Internal Medicine
DX: S51.812A Laceration without foreign body of left forearm, initial encounter (principal); W19.XXXA Unspecified fall, initial encounter; E11.9 Type 2 diabetes mellitus without complications; E78.5 Hyperlipidemia, unspecified; I10 Essential (primary) hypertension; Z95.5 Presence of coronary angioplasty implant and graft; Z85.46 Personal history of malignant neoplasm of prostate; Z90.79 Acquired absence of other genital organ(s); Z79.4 Long term (current) use of insulin
CPT/HCPCS: 99213; G0463

== ENCOUNTER 2024-11-19 11:14 | Outpatient (CLI) | payer MEDICARE, SELFPAY ==
--- NOTE | ~2024-11-19 | US_ITS ---
EXAMINATION: US venous doppler [facility] DATE: 11/19/2024 11:43 INDICATION: Left calf pain and swelling TECHNIQUE: Grayscale ultrasound images without and with compression and Doppler ultrasound images of the bilateral lower extremity veins were obtained. COMPARISON: None. FINDINGS: The visualized portions of right common femoral vein, profunda (deep) femoral vein, femoral vein, pop liteal vein, peroneal veins, posterior tibial veins, and greater saphenous vein outflow are patent. The visualized portions of left common femoral vein, profunda femoral vein, femoral vein, popliteal v ein, peroneal veins, posterior tibial veins, and greater saphenous vein outflow are patent. IMPRESSION: 1. No deep venous thrombosis. Reviewed, dictated and finalized at location A.
--- OUTSIDE RECORDS SUMMARY | 2024-11-19 11:17 | XMS_ITS | Encounter Summary ---
Author Organization [facility] Address [facility] [place] [address] Care Team Providers Care V Belt Mold Assembler And Curer Name Role Phone Uvaldo Arambula MD Primary Care Provider [phone] Rowdy Arana MD Unavailable [phone] Janeen Bansal MD Unavailable [phone] Troy Larsen MD Unavailable [phone] Encounter Details Date Type Department Care Team (Late st Contact Info) Description 11/25/2023 Therapy Plan [facility] [address] [place], [place] [id number] Troy Larsen MD [address] [address] Social History Tobacco Use Types Packs/Day Years Used Date Smoking Tobacco: Never Smokeless Tobacco: Never Comments:patient doesnt smok e Alcohol Use Standard Drinks/Week Comments No 0 (1 standard drink = 0.6 oz pur e alcohol) PHQ-2 Answer Date Recorded PHQ-2 Score - If the patient scores above 3, please move on to questions 3-9 0 12/08/2020 Sex and Gender Information Value Date Recorded Sex Assigned at Male 06/02/2024 10: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 Legal Sex Male 10:22 PM CDT Gender Identity Male 05/23/2021 4:41 PM 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 Answer Date of Assessment Author Status No 09/22/2019 7:01 AM CDT Activ e * Do you have serious difficulty walking or climbing stairs? Answer Date of Assessment Author Status No 09/22/2019 7:01 AM CDT Rachel Sharma RN Active * Do you have difficulty dressing or bathing? Answer Date of Assessment Author Status No 09/22/2019 7:01 AM CDT Rachel Sharma RN Active * Because of a physical, mental, or emotional condition, do you have difficulty doing errands alone such as visiting a doctor's office or shopping? Answer Date of Assessment Author Status No 09/22/2019 7:01 AM CDT Rachel Sharma RN Active documented as of this encounter Mental Status * Because of a physical, mental, or emotional condition, do you have serious difficulty concentrating, remembering, or making decisions? Answer Entry Date Author Status No 09/22/2019 7:01 AM CDT Rachel Sharma RN Active documented in this encounter Plan of Treatment Upcoming Encounters Date Type Department Care Team (Late st Contact Info) Description 12/16/2024 10:00 AM CDT Appointment [facility] [address] [place] [address] Troy Larsen MD [address] [place] [id number] 04/29/2025 12:15 PM SPRAYING MACHINE OPERATOR [facility] [address] [place] [address] Rowdy Arana MD [id number] [place], [place] [id number] documented as of this encounter Visit Diagnoses Diagnosis Seronegative rheumatoid arthritis ([facility])- Primary Rheumatoid arthritis documented in this encounter Additional Health Concerns Assessment Noted Time PHQ-9 Depression Total Score: 0 12/09/19 21 10:04 AM CDT documented as of this encounter Care Teams V Belt Mold Assembler And Curer Relationship Specialty Start Date End Date Uvaldo Arambula MD [address] [place] [id number] PCP - General INTERNAL MEDICINE 09/17/16 Rowdy Arana MD [address] [address] Consulting Physician INTERVENTIONAL CARDIOLOGY 08/07/23 Janeen Bansal MD [address] [address] Consulting Physician NEPHROLOGY 08/07/23 Troy Larsen MD [address] [place] [address] Physician RHEUMATOLOGY 08/07/23 documented as of this encounter
--- OUTSIDE RECORDS SUMMARY | 2024-11-19 11:18 | XMS_ITS | Encounter Summary ---
Author Organization [facility] Address [facility] [place] [address] Care Team Providers Care Tile Ditcher Name Role Phone Uvaldo Arambula MD Primary Care Provider [phone] Margarita Hopkins MD Unavailable Rowdy Arana MD Unavailable [phone] Janeen Bansal MD Unavailable [phone] Troy Larsen MD Unavailable [phone] Encounter Details Date Type Department Care Team (Late st Contact Info) Description 08/22/2020 Abstract [facility] [address] [place] [phone] Margarita Hopkins MD [address] [place] [id number] Social History Tobacco Use Types Packs/Day Years Used Date Smoking Tobacco: Never Smokeless Tobacco: Never Alcohol Use Standard Drinks/Week Comments No 0 (1 standard drink = 0.6 oz pur e alcohol) Sex and Gender Information Value Date Recorded Sex Assigned at Male 06/02/2024 10:06 AM PER DIEM NURSE Legal Sex Male 10:22 PM CDT Gender Identity Male 05/23/2021 4:41 PM PER DIEM NURSE Sexual Orientation Straight 05/23/2021 4: 41 PM PER DIEM NURSE 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 Job End Date 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 Not on [...] Assessment Author Status No 09/22/2019 7:01 AM BETITOT Rachel Sharma RN Active * Because of [...] Info) Description 12/16/2024 10:00 AM CDT Appointment [facility] [address] [place] [address] Troy Larsne MD [address] [place] [address] 04/29/2025 12:15 PM PER DIEM NURSE [facility] [address] [place] [phone] Rowdy Arana MD [address] [address] documented as of this encounter Procedures Procedure Name Priority Date/Time Associated Diagnosis Comments CMP (ABSTRACTED LAB) Routine 05/25/2020 LIPID PANEL Routine 05/25/2020 documented in this encounter Results * LIPID PANEL (05/25/2020) CHOLESTEROL 146 HDL 42 TRIGLYCERIDES 239 LDL (CALCULATED) 56 05/25/2020 us Doc [facility] Abstract LABORATORY Final Result * (ABNORMAL) CMP (ABSTRACTED LAB) (05/25/2020) SODIUM S/P/B 139 POTASSIUM S/P/B 4.3 CHLORIDE S/P/B 103 CO2 25 BUN 20 CREATININE S/P/B 1.36(A) 0.7 - 1.3 EGFR AFR. AMER. 61 <=90 EGFR NON-AFR. AMER. 51 <=90 CALCIUM S/P/B 8.8 GLUCOSE 204 mg/dL TOTAL PROTEIN S/P/B 6.9 ALBUMIN S/P/B 3.7 3.5 - 5.0 AST 13 ALT 21 ALKALINE PHOSPHATASE S/P/B 114 BILIRUBIN TOTAL S/P/B 1.2 05/25/2020 us Doc [facility] Abstract LAB-OUTSIDE/ABSTRACTED Final Result documented in this encounter Visit Diagnoses Not on filedocumented in this encounter Care Teams Tile Ditcher Relationship Specialty Start Date End Date Uvaldo Arambula MD [address] [place] [address] PCP - General INTERNAL MEDICINE 09/17/16 Margarita Hopkins MD [address] [place] [address] CARDIOVASCULAR DISEASE 09/17/16 Rowdy Arana MD [facility] [address] [place] [address] Consulting Physician INTERVENTIONAL CARDIOLOGY 08/07/23 Janeen Bansal MD [facility] [address] [place] [address] Consulting Physician NEPHROLOGY 08/07/23 Troy Larsen MD [address] [place] [address] Physician RHEUMATOLOGY 08/07/23 documented as of this encounter
--- OUTSIDE RECORDS SUMMARY | 2024-11-19 11:18 | XMS_ITS | Encounter Summary ---
Author Organization [facility] Address [facility] [place] [address] Care Team Providers Care Molecular Spectroscopist Name Role Phone Uvaldo Arambula MD Primary Care Provider [phone] Margarita Hopkins MD Unavailable Rowdy Arana MD Unavailable [phone] Janeen Bansal MD Unavailable [phone] Troy Larsen MD Unavailable [phone] Encounter Details Date Type Department Care Team (Late st Contact Info) Description 10/17/2018 Abstract [facility] [address] [place] [address] , Generic Conversion, Social History Tobacco Use Types Packs/Day Years Used Date Smoking Tobacco: Never Smokeless Tobacco: Never Alcohol Use Standard Drinks/Week Comments No 0 (1 standard drink = 0.6 oz pur e alcohol) Sex and Gender Information Value Date Recorded Sex Assigned at Male 06/02/2024 10:06 AM PERSONAL CARE ASSISTANT Legal Sex Male 10:22 PM CDT Gender Identity Male 05/23/2021 4:41 PM PERSONAL CARE ASSISTANT Sexual Orientation Straight 05/23/2021 4: 41 PM PERSONAL CARE ASSISTANT 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 Job 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 Date 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 file Not on fi le Not on file documented as of this encounter Plan of Treatment Upcoming Encounters Date Type Department Care Team (Late st Contact Info) Description 12/16/2024 10:00 AM CDT Appointment [facility] [address] [place] [address] Troy Larsen MD [address] [place] [address] 04/29/2025 12:15 PM PERSONAL CARE ASSISTANT Office Visit [facility] [address] [place] [address] Rowdy Arana MD [address] [address] documented as of this encounter Visit Diagnoses Not on filedocumented in this encounter Additional Health Concerns Infection Onset Date Last Indicated Resolved Time COVID-19 Rule Out 09/20/2019 09/20/2019 09/21/2019 3:30 PM CDT documented as of this encounter Care Teams Molecular Spectroscopist Relationship Specialty Start Date End Date Uvaldo Arambula MD [address] [place] [address] PCP - General INTERNAL MEDICINE 09/17/16 Margarita Hopkins MD [address] [place] [address] CARDIOVASCULAR DISEASE 09/17/16 Rowdy Arana MD [facility] [address] [place] [address] Consulting Physician INTERVENTIONAL CARDIOLOGY 08/07/23 Janeen Bansal MD [facility] [address] [place] [address] Consulting Physician NEPHROLOGY 08/07/23 Troy Larsen MD [address] [address] Physician RHEUMATOLOGY 08/07/23 documented as of this encounter
--- OUTSIDE RECORDS SUMMARY | 2024-11-19 11:18 | XMS_ITS | Encounter Summary ---
Author Organization [facility] Address [facility] [place] [address] Care Team Providers Care Cloth Bleaching Range Operator Chief Name Role Phone Uvaldo Arambula MD Primary Care Provider [phone] Margarita Hopkins MD Unavailable Rowdy Arana MD Unavailable [phone] Janeen Bansal MD Unavailable [phone] Troy Larsen MD Unavailable Encounter Details Date Type Department Care Team (Late st Contact Info) Description 09/15/[address] 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 No / Unsure 09/16/2019 9:43 AM CDT documented as of this encounter Plan of Treatment Upcoming Encounters Date Type Department Care Team (Late st Contact Info) Description 12/16/2024 10:00 AM CDT Appointment [facility] [address] [place] [address] Troy Larsen MD [address] [place] [address] 04/29/2025 12:15 PM FITTER UP Office Visit [facility] [address] [place] [phone] Rowdy Arana MD [facility] [place] [address] [place], [place] [phone] documented as of this encounter Visit Diagnoses Not on filedocumented in this encounter Additional Health Concerns Infection Onset Date Last Indicated Resolved Time COVID-19 Rule Out 09/20/2019 09/20/2019 09/21/2019 3:30 PM CDT documented as of this encounter Care Teams Cloth Bleaching Range Operator Chief Relationship Specialty Start Date End Date Uvaldo Arambula MD [address] [place] [phone] PCP - General INTERNAL MEDICINE 09/17/16 Margarita Hopkins MD [address] [place] [phone] CARDIOVASCULAR DISEASE 09/17/16 Rowdy Arana MD [facility]. [facility] [address] [place] [address] Consulting Physician INTERVENTIONAL CARDIOLOGY 08/07/23 Janeen Bansal MD [facility] [address] [place] [address] Consulting Physician NEPHROLOGY 08/07/23 Troy Larsen MD [address] [place] [address] Physician RHEUMATOLOGY 08/07/23 documented as of this encounter
--- OUTSIDE RECORDS SUMMARY | 2024-11-19 11:18 | XMS_ITS | Encounter Summary ---
Author Organization [facility] Address [facility] [place] [address] Care Team Providers Care Insurance Sales Assistant Name Role Phone Uvaldo Arambula MD Primary Care Provider [phone] Rowdy Arana MD Unavailable [phone] Janeen Bansal MD Unavailable [phone] Troy Larsen MD Unavailable [phone] Encounter Details Date Type Department Care Team (Late st Contact Info) Description 10/25/2024 Therapy Plan [facility] [address] [place], [place] [phone] Troy Larsen MD [address] [address] Social History Tobacco Use Types [...] Sex Assigned at Male 06/02/2024 10:06 AM PRESS ASSISTANT Legal Sex Male 10:22 PM CDT Gender Identity Male 05/23/2021 4:41 PM PRESS ASSISTANT Sexual Orientation Straight 05/23/2021 4: 41 PM PRESS ASSISTANT 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 Job End Date 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 [...] Info) Description 12/16/2024 10:00 AM CDT Appointment [facility] [address] [place] [address] Troy Larsen MD [address] [place] [address] 04/29/2025 12:15 PM PRESS ASSISTANT [facility] [address] [place] [address] Rowdy Arana MD [place] [address] [place], [place] [phone] documented as of this encounter Visit Diagnoses Diagnosis Seronegative rheumatoid arthritis ([facility] Primary Rheumatoid arthritis documented in this encounter Additional Health Concerns Assessment Noted Time PHQ-9 Depression Total Score: 0 12/09/19 21 10:04 AM CDT documented as of this encounter Care Teams Insurance Sales Assistant Relationship Specialty Start Date End Date Uvaldo Arambula MD [address] [place] [phone] PCP - General INTERNAL MEDICINE 09/17/16 Rowdy Arana MD [address] [address] Consulting Physician INTERVENTIONAL CARDIOLOGY 08/07/23 Janeen Bansal MD [address] [address] Consulting Physician NEPHROLOGY 08/07/23 Troy Larsen MD [address] [place] [address] Physician RHEUMATOLOGY 08/07/23 documented as of this encounter
--- OUTSIDE RECORDS SUMMARY | 2024-11-19 11:18 | XMS_ITS | Encounter Summary ---
Author Organization [facility] Address [facility] [place] [address] Care Team Providers Care Supervisor Cereal Name Role Phone Uvaldo Arambula MD Primary Care Provider [phone] Rowdy Arana MD Unavailable [phone] Janeen Bansal MD Unavailable [phone] Troy Larsen MD Unavailable [phone] Encounter Details Date Type Department Care Team (Late st Contact Info) Description 10/29/2024 [employer] Message [facility] [phone] [place] [phone] Rowdy Arana MD [address] [address] Question on next blood work Social History Tobacco Use Types Packs/Day Years [...] Sex Assigned at Male 06/02/2024 10:06 AM RESIDENTIAL PROPERTY MANAGER Legal Sex Male 10:22 PM CDT Gender Identity Male 05/23/2021 4:41 PM RESIDENTIAL PROPERTY MANAGER Sexual Orientation Straight 05/23/2021 4: 41 PM RESIDENTIAL PROPERTY MANAGER 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 Job End Date 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 on file Not on fi [...] Info) Description 12/16/2024 10:00 AM CDT Appointment [facility] [address] [place] [address] Troy Larsen MD [address] [place] [address] 04/29/2025 12:15 PM RESIDENTIAL PROPERTY MANAGER [facility] [place] [facility] [address] [place] [phone] Rowdy Arana MD [address] [address] documented as of this encounter Visit Diagnoses Not on filedocumented in this encounter Additional Health Concerns Assessment Noted Time PHQ-9 Depression Total Score: 0 12/09/19 21 10:04 AM CDT documented as of this encounter Care Teams Supervisor Cereal Relationship Specialty Start Date End Date Uvaldo Arambula MD [address] [place] [phone] PCP - General INTERNAL MEDICINE 09/17/16 Rowdy Arana MD [address] [address] Consulting Physician INTERVENTIONAL CARDIOLOGY 08/07/23 Janeen Bansal MD [address] [address] Consulting Physician NEPHROLOGY 08/07/23 Troy Larsen MD [address] [address] Physician RHEUMATOLOGY 08/07/23 documented as of this encounter
--- OUTSIDE RECORDS SUMMARY | 2024-11-19 11:18 | XMS_ITS | Data Portability ---
Author Organization [facility], [address] [place] [address] Neurology ([place]) Address [address] [address] Care Team Providers Care Customer Experience Consultant Name Role Phone BRANDON WILLAMS Primary Care Provider Assessment Encounter Date Assessment Date Assessment LastModified by Organization Details LastModified Time 09/18/2023 09/18/2023 IMPRESSION: 1. Seronegative RA. 2. Osteoarthritis. 3. Chronic kidney disease stage 3. 4. High risk medication use. nv PLAN: 1. Labs in early October 2023 as scheduled. 2. Continue current methotrexate, folic acid and low dose prednisone. 3. Followup visit in 4 months for recheck. shelli Not available 09/20/2023 13:44:09 01/22/2024 01/22/2024 IMPRESSION: 1. Seronegative RA currently well controlled. 2. Osteoarthritis. 3. Chronic kidney disease stage 3. PLAN: 1. Taper prednisone by 1 mg decrements monthly until off. 2. Continue current infliximab, methotrexate and folate therapy. 3. DMARD labs to continue every 4 months. 4. Followup visit in 5 months for recheck. yarelis Not available 01/23/2024 12:55:27 11/04/2024 11/04/2024 IMPRESSION: 1. Seronegative RA. 2. Osteoarthritis. PLAN: 1. Hydrate well with 90 ounces of water intake daily. 2. We will obtain a copy of his most recent labs from his primary care provider. 3. Continue current arthritis, pharmacotherapeutic regimen. 4. Followup visit in the spring. Today I had a lengthy discussion with the patient regarding my clinical impressions and overall recommendations. All of his questions and concerns are addressed in detail. I personally spent a total of 32 minutes on the patient on this date of service including both wfdk-wh-rbey and ppn-rebf-qg-face time excluding any separately reportable services. yarelis Not available 11/05/2024 09:34:55 Plan of Treatment Reminders Order Date Submit Date Provider Last Modified By Organization Details Last Modified Time Details Appointments None recorded. Lab CBC 2023 024 [id number] [facility], [address] [place] [address], [id number], 4 16:54:53 CMP, serum or plasma 2023 024 [id number] [facility], [address] [place] [address], [id number], 4 16:54:41 ESR (erythrocyt e sedimentati on rate), blood 2023 024 [id number] [facility], [address] [place] [address], [id number], 4 16:54:32 unlisted lab - CRP ([facility]) 2023 024 [id number] [facility], [address] [place] [address], [id number], 4 16:55:02 Referral None recorded. Procedures None recorded. Surgeries None recorded. Imaging None recorded. Medication Orders None recorded. Patient TargetsNo targets recorded. Patient InstructionsNo instructions recorded. Reason for Referral None Reported. Results Created Date Observation Date Name Description Value Unit Range Abnormal Flag Note LastModifiedBy Organization Detail LastModifiedTime 04/29/20 24 04/26/2024 bone densi ty No observ ation record ed. PEDRO Not Available 2023 12:40:39 Result Notes None recorded. Problems Name Problem SNOMED Code Status Onset Date Resolution Date Notes Provider Name and Address Organization Details Recorded Time Senile osteopenia 20859101 Active 2023 Lenin Holder [facility] 4 12:41:11 Generalized osteoarthritis 586958005 Active 2024 Troy Larsen MD [address] [place] [address], [phone], [facility] 5 16:20:27 Drug-induced osteoporosis 42535472 [facility] 09:[facility]01 Chronic kidney disease stage 3 861998868 Active 2023 [facility] 4 09:59:09 Osteoarthritis 569594857 Active 2023 [facility] 4 09:59:16 Seronegative rheumatoid arthritis 599102275 Active 2023 Troy Larsen MD [address] [place] [address], [phone], [facility] 5 16:20:22 Type 2 diabetes mellitus 18527738 [facility] 20[facility] 4 09:59:44 Problem Notes None recorded. Medical Equipment None Reported. Allergies No known drug allergies Medications Name Sig Start Date Stop Date Status Note LastModified by Organization Details LastModified Time prednison e 10 mg tablet TAKE 1 TABLET BY MOUTH EVERY DAY TAKE WITH OTHER PREDNISO NE TABLETS TO ACHIEVE 17.5 DAILY DOSE 09/15 completed Not Available Not Available Not Available Iron (ferrous sulfate) 325 mg (65 mg iron) tablet TAKE 1 TABLET ON MON , WED , AND FRI active Not Available Not Available No t Available metoprolo l succinate ER 50 mg tablet,ex tended release 24 hr TAKE 1 TABLET BY MOUTH EVERY DAY active Not Available Not Available No t Available alendrona te 70 mg tablet TAKE 1 TABLET EVERY 2 WEEKS BY ORAL ROUTE. active Not Available Not Available No t Available prednison e 5 mg tablet TAKE 1 TABLET BY MOUTH DAILY 2024 active Not Available Not Available Not Avai lable sulfameth oxazole 800 mg-trimet hoprim 160 mg tablet TAKE 1 TABLET BY MOUTH TWICE A DAY 09/15 completed Not Available Not Available Not Available methotrex ate sodium 2.5 mg tablet ONCE WEEKLY, TAKE 6 TABLETS BY MOUTH (OK TO TAKE 3 TABLETS IN AM AND 3 TABLETS IN PM OF SAME DAY) 2024 active Not Available Not Available Not Avai lable tamsulosi n 0.4 mg capsule TAKE 1 CAPSULE BY MOUTH EVERY DAY active Not Available Not Available No t Available prednison e 1 mg tablet TAKE 3 TABLETS ONCE DAILY IN MARCH , THEN REDUCE TO 2 TABLETS ONCE DAILY IN APRIL , THEN REDUCE TO 1 TABLET DAILY IN MAY 2024. OFF. active Not Available Not Available No t Available potassium citrate ER 10 mEq (1,080 mg) tablet,ex tended release TAKE 1 TABLET BY MOUTH EVERY DAY active Not Available Not Available No t Available prednison e 2.5 mg tablet TAKE 3 TABLETS BY MOUTH ONCE DAILY 09/15 completed Not Available Not Available Not Available cephalexi n 500 mg capsule TAKE 1 CAPSULE BY MOUTH THREE TIMES A DAY 09/15 completed Not Available Not Available Not Available inflixima b 100 mg intraveno us solution Infuse 3 mg / kg every 8 weeks 2024 active [facility] - [id number] 65 Not Available Not Available Not Available losartan 25 mg tablet TAKE 1/2 TABLET BY MOUTH EVERY DAY active Not Available Not Available No t Available aspirin 81 mg chewable tablet Chew 1 tablet every day by oral route. active Not Available Not Available No t Available folic acid 1 mg tablet Take 1 tablet every day by oral route. active Not Available Not Available No t Available mont[address] st 10 mg tablet TAKE 1 TABLET BY MOUTH EVERY DAY IN THE EVENING active Not Available Not Available No t Available rosuvasta tin 10 mg tablet TAKE 1 TABLET BY MOUTH EVERY DAY 09/15 completed Not Available Not Available Not Available rosuvasta tin 40 mg tablet TAKE 1 TABLET BY MOUTH EVERY DAY active Not Available Not Available No t Available nitrofura ntoin monohydra te/macroc rystals 100 mg capsule TAKE 1 CAPSULE EVERY 12 HOURS FOR 5 DAYS MUST ADMINIST ER WITH A MEAL/VICK D 09/15 completed Not Available Not Available Not Available brimonidi ne 0.1 % eye drops INSTILL 1 DROP INTO LEFT EYE TWICE A DAY active Not Available Not Available No t Available Lantus Solostar U-100 Insulin 100 unit/mL (3 mL) subcutane ous pen INJECT 40 UNITS IN MORNING AND 40 UNITS AT NIGHT active Not Available Not Available No t Available Humalog KwikPen (U-100) Insulin 100 unit/mL subcutane ous INJECT 8 UNITS BEFORE MEALS active Not Available Not Available No t Available Myrbetriq 25 mg tablet,ex tended release TAKE 1 TABLET BY MOUTH EVERY DAY active Not Available Not Available No t Available Jardiance 25 mg tablet TAKE 1 TABLET BY MOUTH EVERY MORNING 09/17 completed Not Available Not Available Not Available True Metrix Glucose Test Strip TEST BLOOD SUGAR THREE TIMES DAILY DX. E11.9 active Not Available Not Available No t Available Rybelsus 14 mg tablet TAKE 1/2-1 TABLET BY MOUTH EVERY DAY 01/21 completed Not Available Not Available Not Available Rybelsus 7 mg tablet PLEASE SEE ATTACHED FOR DETAILED DIRECTIO NS 09/17 completed Not Available Not Available Not Available Rybelsus 3 mg tablet TAKE 1 TABLET DAILY active Not Available Not Available No t Available Ozempic 1 mg/dose (4 mg/3 mL) subcutane ous pen injector INJECT 1 MG SUBCUTAN EOUSLY ONCE WEEKLY ON SAME DAY OF EACH WEEK 11/04 completed Not Available Not Available Not Available Ozempic 0.25 mg or 0.5 mg (2 mg/3 mL) subcutane ous pen injector INJECT 0.5 MG SUBCUTAN EOUSLY ONE TIME PER WEEK ON THE SAME DAY OF EACH WEEK active Not Available Not Available No t Available Vitals Date Recorded Body height Body mass index (BMI) Body weight Heart rate Oxygen saturation Oxygen saturation in Arterial blood by Pulse oximetry Systolic And Diastolic Provider Name and Address Organization Details Last Updated DateTime 4 175.26 cm 29.1 kg/m2 92103.7 g 80 /min 94 % 94 % 128/80 mm[Hg] Yvrose Martínez [facility] 4 11:43:02 Date Recorded Body height Body mass index (BMI) Body weight Heart rate Oxygen saturation Oxygen saturation in Arterial blood by Pulse oximetry Systolic And Diastolic Provider Name and Address Organization Details Last Updated DateTime 5 175.26 cm 28.1 kg/m2 40863.5 5 g 101 /min 95 % 95 % 118/78 mm[Hg] Ely Mullins [facility] 5 15:49:31 Date Recorded Body height Body mass index (BMI) Body weight Heart rate Oxygen saturation Oxygen saturation in Arterial blood by Pulse oximetry Systolic And Diastolic Provider Name and Address Organization Details Last Updated DateTime 4 175.26 cm 28.8 kg/m2 17236.4 3 g 87 /min 98 % 98 % 118/62 mm[Hg] Ruby Cuadra [facility] 4 11:04:59 Social History None recorded. Functional Status None recorded. Mental Status None recorded. Family History Relationship Description Onset Age of this Age Resolved Age Notes LastModified by Organization Details LastModified Time Mother Heart disease [email or web address] Not available 2023 10:00:25 Maternal Grandmother Heart disease [email or web address] Not available 2023 10:00:37 Medical History No medical history recorded. Past Encounters Encounter ID Performer Location Encounter Start Date Encounter Closed Date Diagnosis/Indication Diagnosis SNOMED-CT Code Diagnosis ICD10 Code Diagnosis Note [id number] Troy Larsen MD [facility] Rheumatol [facility]gy ([place]) [address] [place] [address] 09/18/2023 11:17:44 09/25/2023 10:05:57 Seronegative rheumatoid arthritis 299207174 M06.00 Osteoarthritis 596869030 M19.90 Chronic ki dney disease stage 3 351083892 N18.30 Seronegati ve rheumatoid arthritis of multiple joints 3614868787 52618 M06.09 Long-term current use of steroid 146726990 Z79.52 Long-term current use of immunosuppressive drug 105814584 Z79.539 [id number] Troy Larsen MD [facility]umat[facility] ([place]) [address] [facility] [place] [place] [address] 01/22/2024 10:53:20 01/26/2024 04:37:15 Osteoarthritis 784373588 M19.90 Drug-induc ed osteoporosis 86191426 M81.8 Chronic ki dney disease stage 3 255213521 N18.30 Rheumatoid arthritis of multiple joints 329785339 M06.89 Additional diagnosis detail: Other specified rheumatoid arthritis, multiple sites Long-term current use of antimetabolite 9231350715 79264672 Z79.631 Additional diagnosis detail: detention (current) use of antimetabo lite agent Long-term current use of systemic steroid 1203719618 97662 Z79.52 Additional diagnosis detail: 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 ([place]) [address] [place] [address] 11/04/2024 15:39:42 11/06/2024 07:10:39 Seronegative rheumatoid arthritis 413640030 M06.00 Generalize d osteoarthritis 504742309 M15.9 Health Concerns Section Related Observation LastModified by Organization Detai ls LastModified Time None Recorded Concern Status LastModified by Organization Details LastModified Time None Recorded Advance Directives Directive None Recorded Payers Insurance Date Sequence Insurance Name Policy Number Policy Rivera Covered Member ID Rivera Member ID Guarantor Name 11/04/2024 1 [place] Danielnessa Cassie Maddison [id number] Xochilt Washburn 11/06/2024 2 [facility] Xochilt Washburn [id number] Xochilt Washburn Notes Date Note Type Note Provider Name and Address Organization Details Recorded Time 09/18/2023 text/html The patient is a 77-year-old postmenopausal white female with a history of seronegative RA and osteoarthritis, as well as chronic kidney disease stage 3, who is here today for a followup visit.The patient is now down to 5 mg daily on her prednisone. She has in general tolerated the prednisone weaning. She tolerates her methotrexate therapy without postdosing stomatitis, alopecia, fever, chills, cough, pleurisy, shortness of breath, chest pain or palpitations, GERD, melena or hematochezia, diarrhea or constipation. Her pain level is down to a 1/10 on a scale, however, the patient does experience 2 hours of morning stiffness each day.On further review, she has had no Raynaud s symptoms. Her appetite is normal. I did review with the patient today her labs from July 03, 2023, demonstrating some modest increase in her acute phase reactants and slight worsening of her anemia of chronic disease, but otherwise normal lab parameters. She denies any dysuria or gross hematuria or bleeding from the nares or gums.shelli Larsen MD [facility] [place] [address], [phone], [facility] 09/26/2023 20:59:03 01/22/2024 text/html The patient is a n 78-year-old female with seronegative RA, osteoarthritis and chronic kidney disease stage 3, who is here today for a followup visit. She continues on infliximab in combination with her low dose prednisone therapy and moderate dose methotrexate. She reports tolerating her medications well and the current regimen has her pain under very good control at a 0/10 on a scale. Currently she is experiencing less than 10 minutes of morning stiffness. She has had no postinfusion reactions. No problems with headaches, stomatitis, alopecia, cough, pleurisy, shortness of breath, chest pain, or palpitations, GERD, melena or hematochezia, diarrhea or constipation, anorexia or early satiety, dysuria or gross hematuria. She has had no Raynaud s symptoms. Her most recent labs from November 18, 2023, are reviewed with her today. Her CBC and CMP are normal.yarelis Larsen MD [address] [place] [address], [phone], [facility] 01/30/2024 09:22:37 11/04/2024 text/html The patient is a n 78-year-old male with a history of seronegative RA and osteoarthritis, who is here today for a followup visit. He reports overall his joints are actually doing quite well. He continues on his methotrexate and infliximab therapy. He is tolerating his alendronate once weekly bone medication and has had no falls or fractures. His morning stiffness is lasting less than 5 minutes in duration. On further review of systems, the patient has had no fever or chills, Raynaud s symptoms, skin rash, aphthous ulcers, cough, pleurisy, chest pain or palpitations. The patient does report some nausea and vomiting recently when his Ozempic dose was increased by his primary care. It has now been reduced back to the lowest dose and his GI symptoms have improved dramatically.yarelis Larsen MD [address] [place] [address], [phone], [facility] 11/06/2024 21:15:20
--- OUTSIDE RECORDS SUMMARY | 2024-11-19 11:18 | XMS_ITS | Encounter Summary ---
Author Organization [facility] Address [facility] [place] [address] Care Team Providers Care Casing Cleaner Name Role Phone Uvaldo Arambula MD Primary Care Provider [phone] Margarita Hopkins MD Unavailable Rowdy Arana MD Unavailable [phone] Janeen Bansal MD Unavailable [phone] Troy Larsen MD Unavailable Encounter Details Date Type Department Care Team (Late st Contact Info) Description 06/30/2015 Abstract [facility] [address] [place] [phone] Margarita Hopkins MD [address] [place] [address] Social History Tobacco Use Types Packs/Day Years Used Date Smoking Tobacco: Never Alcohol Use Standard Drinks/Week Comments No 0 (1 standard drink = 0.6 oz pur e alcohol) Sex and Gender Information Value Date Recorded Sex Assigned at Male 06/02/2024 10:06 AM WRAP TURNER Legal Sex Male 10:22 PM CDT Gender Identity Male 05/23/2021 4:41 PM WRAP TURNER Sexual Orientation Straight 05/23/2021 4: 41 PM WRAP TURNER 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 Job 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 [address] [address] documented as of this encounter Visit Diagnoses Not on filedocumented in this encounter Additional Health Concerns Infection Onset Date Last Indicated Resolved Time COVID-19 Rule Out 09/20/2019 09/20/2019 09/21/2019 3:30 PM CDT documented as of this encounter Care Teams Casing Cleaner Relationship Specialty Start Date End Date Uvaldo Arambula MD [address] [place] [phone] PCP - General INTERNAL MEDICINE 09/17/16 Margarita Hopkins MD [address] [place] [address] CARDIOVASCULAR DISEASE 09/17/16 Rowdy Arana MD [facility] [address] [place], [place] [address] Consulting Physician INTERVENTIONAL CARDIOLOGY 08/07/23 Janeen Bansal MD [facility]. [facility] [address] [place] [address] Consulting Physician NEPHROLOGY 08/07/23 Troy Larsen MD [address] [place] [address] Physician RHEUMATOLOGY 08/07/23 documented as of this encounter
--- OUTSIDE RECORDS SUMMARY | 2024-11-19 11:18 | XMS_ITS | Encounter Summary ---
Author Organization [facility] Address [facility] [place] [address] Care Team Providers Care Cisco Administrator Name Role Phone Uvaldo Arambula MD Primary Care Provider [phone] Margarita Hopkins MD Unavailable Rowdy Arana MD Unavailable Janeen Bansal MD Unavailable [phone] Troy Larsen MD Unavailable [phone] Encounter Details Date Type Department Care Team (Late st Contact Info) Description 12/19/2021 Abstract [facility] [place] [address] [address] Abstract, Doc [facility] Social History Tobacco Use Types Packs/Day Years [...] Sex Assigned at Male 06/02/2024 10:06 AM MANAGER CARE Legal Sex Male 10:22 PM CDT Gender Identity Male 05/23/2021 4:41 PM MANAGER CARE Sexual Orientation Straight 05/23/2021 4: 41 PM MANAGER CARE 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 Job End Date 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 Not on [...] Info) Description 12/16/2024 10:00 AM CDT Appointment [facility] [address] [place] [address] Troy Larsen MD [address] [place] [address] 04/29/2025 12:15 PM MANAGER CARE [facility] [address] [place] [phone] Rowdy Arana MD [address] [address] documented as of this encounter Procedures Procedure Name Priority Date/Time Associated Diagnosis Comments AST/SGOT Routine 12/17/2021 Encounter for long-term current use of medication LIPID PANEL Routine 12/17/2021 Mixed hyperlipidemia ALT/SGPT Routine 12/17/2021 Encounter for long-term current use of medication documented in this encounter Results * ALT/SGPT (12/17/2021) ALT 20 12/17/2021 us Margarita Hopkins MD LABORATORY Final Result * AST/SGOT (12/17/2021) AST 14 12/17/2021 us Margarita Hopkins MD LABORATORY Final Result * LIPID PANEL (12/17/2021) CHOLESTEROL 162 HDL 42 TRIGLYCERIDES 246 LDL (CALCULATED) 71 12/17/2021 us Margarita Hopkins MD LABORATORY Final Result documented in this encounter Visit Diagnoses Diagnosis Mixed hyperlipidemia Encounter for long-term current use of medication documented in this encounter Additional Health Concerns Assessment Noted Time PHQ-9 Depression Total Score: 0 12/09/19 21 10:04 AM CDT documented as of this encounter Care Teams Cisco Administrator Relationship Specialty Start Date End Date Uvaldo Arambula MD [address] [place] [address] PCP - General INTERNAL MEDICINE 09/17/16 Margarita Hopkins MD [address] [place] [phone] CARDIOVASCULAR DISEASE 09/17/16 Rowdy Arana MD [facility]. [facility] [address] [place] [address] Consulting Physician INTERVENTIONAL CARDIOLOGY 08/07/23 Janeen Bansal MD [facility]. [facility] [address] [place] [address] Consulting Physician NEPHROLOGY 08/07/23 Troy Larsen MD [address] [place] [address] Physician RHEUMATOLOGY 08/07/23 documented as of this encounter
--- OUTSIDE RECORDS SUMMARY | 2024-11-19 11:18 | XMS_ITS | Clinical Summary ---
Author Organization [facility] Address [address] [place] [address] Care Team Providers Care Machine Mover Name Role Phone Uvaldo Arambula MD Primary Care Provider [phone] Rowdy Arana MD Unavailable [phone] Janeen Bansal MD Unavailable [phone] Troy Larsen MD Unavailable [phone] Allergies No known active allergies Medications aspirin EC (ECOTRIN) 81 MG tablet Take 1 tablet (81 mg total) by mouth daily. 08/25/19 04 Active TRUE METRIX BLOOD GLUCOSE TEST test strip TEST BLOOD SUGARS EVERY DAY 02/11/20 20 Active TECHLITE PEN NEEDLES 31G X 8 MM Misc USE WITH INSULIN 3 TIMES A DAY DIRECTED 01/06/20 20 Active ferrous sulfate, 65 mg elemental, 325 (65 FE) MG tablet TAKE 1 TABLET BY MOUTH EVERY DAY 90 tablet 1 05/01/20 22 Active HUMALOG KWIKPEN 100 UNIT/ML injection (PEN) INJECT 8 UNITS BEFORE MEALS 01/28/20 22 Active Vitamin D3 (CHOLECALCIFERO L) 50 mcg tablet Take 1 tablet (50 mcg total) by mouth daily. Active Cyanocobalamin (VITAMIN B-12) 5000 MCG TABLET DISPERSIBLE Take by mouth daily. Active tamsulosin (FLOMAX) 0.4 MG Cap Take 1 capsule (0.4 mg total) by mouth nightly. 02/20/20 23 Active methotrexate (TREXALL) 2.5 MG tablet TAKE 3 TABLETS IN THE AM AND 3 TABLETS IN THE PM ONCE WEEKLY 03/15/20 23 Active LANTUS SOLOSTAR 100 UNIT/ML injection (PEN) Inject into the skin 2 (two) times daily. 30 units in morning and 20 units at night 06/01/19 24 Active predniSONE (DELTASONE) 5 mg tablet Take 1 tablet (5 mg total) by mouth daily. 05/22/19 24 Active folic acid (FOLVITE) 1 MG tablet Take 1 tablet every day by oral route. Active MYRBETRIQ 25 MG 24 hr tablet TAKE 1 TABLET BY MOUTH DAILY, PT SHOULD MONITOR BP WHEN TAKING MYRBETRIQ Active losartan (COZAAR) 25 MG tablet Take 0.5 tablets (12.5 mg total) by mouth daily. 45 tablet 1 06/15/19 25 Active potassium citrate CR (UROCIT-K) 10 MEQ (1080 MG) tablet Take 1 tablet (10 mEq total) by mouth daily. 90 tablet 06/18/19 25 Active rosuvastatin (CRESTOR) 40 MG tablet TAKE 1 TABLET BY MOUTH EVERY DAY 90 tablet 1 06/21/19 25 Active metoprolol succinate ER (TOPROL-XL) 50 MG 24 hr tablet TAKE 1 TABLET BY MOUTH EVERY DAY 90 tablet 1 07/08/19 25 Active OZEMPIC 1 mg/dose injection (PEN) INJECT 1 MG SUBCUTANEOUSLY ONCE WEEKLY ON SAME DAY OF EACH WEEK 10/09/19 25 Active Active Problems Problem Noted Date Diagnosed Date Seronegative rheumatoid arthritis ([facility]/ [facility]) 11/25/2023 Hypomagnesemia 03/12/2023 Nephrolithiasis 03/12/2023 Class 1 obesity due to exces s calories with serious comorbidity and body mass index (BMI) of 31.0 to 31.9 in adult 09/13/2022 Assessment & Plan (09/13/2022 10:09 AM CDT): He is obese with a Body mass index is 31.78 kg/m . He was educated on lifestyle modifications including diet and exercise. Iron deficiency anemia, unsp ecified iron deficiency anemia type 11/07/2021 Vitamin D deficiency, unspecified 11/07/2021 Diabetes mellitus without complication ([facility]) 11/07/2021 Assessment & Plan (03/21/2023 8:23 AM LAP CUTTER): A1c reviewed from December which was 10.3 Aggressive glycemic management encourage overall decreasing risk of atherosclerotic disease process Obstructive uropathy 11/07/2021 Stage 3a chronic kidney disease 04/24/2021 Assessment & Plan (04/09/2024 1:11 PM LAP CUTTER): Patient was placed on losartan 12.5 mg for renal protection. Assessment & Plan (09/26/2023 11:20 AM CDT): Continue ARB. Encourage good glycemic control. Likely related to diabetes. Assessment & Plan (03/21/2023 8:21 AM LAP CUTTER): Followed by nephrology Uric acid nephrolithiasis 04/24/2021 Secondary hyperparathyroidism of renal origin (H HS/HCC) 04/24/2021 S/P CABG (coronary artery bypass graft) 11/08/19 Assessment & Plan (03/25/2023 10:24 AM LAP CUTTER): He has a history of coronary artery disease status post PCI to LAD and coronary bypass grafting. He is not having any angina. Encouraged glycemic control to help further risk prevention of coronary artery disease. Continue ASA, beta-eliel, and rosuvastatin. 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 He is not having any angina. Continue medical management with aspirin, rosuvastatin, metoprolol. Recent A1c 12. Encouraged further glycemic control. Assessment & Plan (04/09/2024 1:10 PM LAP CUTTER): He has a history of coronary artery disease status post PCI to LAD and coronary bypass grafting. He is not having any angina. Continue medical management with aspirin, rosuvastatin, metoprolol. Hemoglobin A1c improved to 8.3. Educated patient on glycemic control and diabetes being cardiovascular risk factor Assessment & Plan (09/26/2023 11:18 AM CDT): He has a history of coronary artery disease status post PCI to LAD and coronary bypass grafting. He is not having any angina. Encouraged glycemic control to help further risk prevention of coronary artery disease. Continue aspirin, beta- eliel, and rosuvastatin. Assessment & Plan (09/13/2022 10:08 AM CDT): He has a history of coronary artery disease status post PCI to LAD and coronary bypass grafting. He is not having any angina. Encouraged glycemic control to help further risk prevention of coronary artery disease. Continue beta-eliel, and rosuvastatin. Hypertension, essential Assessment & Plan (10/22/2024 2:26 PM CDT): Blood pressure is well-controlled in office. Continue medical management with losartan, metoprolol. Assessment & Plan (04/09/2024 1:08 PM LAP CUTTER): Blood pressure was slightly low in office today at 98/52 mmHg. Patient and state that his blood pressure typically runs 110/60 at home. He was recently placed on losartan 12.5 mg for renal protection. Patient states he does not experience dizziness, near syncope, or lightheadedness with soft blood pressures. Advised patient to monitor for those symptoms and continue to monitor blood pressure at home. May need to make medication adjustments in the future if symptomatic hypotension starts. Assessment & Plan (09/26/2023 11:19 AM CDT): His blood pressure is well controlled. Continue metoprolol and losartan. Assessment & Plan (03/21/2023 8:19 AM LAP CUTTER): Currently stable on current regimen continued on metoprolol 50 mg a day Assessment & Plan (09/13/2022 10:09 AM CDT): His blood pressure is well controlled. Continue metoprolol. He does not require an CHRISTOPHER inhibitor since he does not have proteinuria. Mixed hyperlipidemia Assessment & Plan (10/22/2024 2:26 PM CDT): Recommended repeating a lipid panel. Continue rosuvastatin. Assessment & Plan (04/09/2024 1:11 PM LAP CUTTER): Last lipid panel with an LDL of 40. Continue rosuvastatin. Assessment & Plan (09/26/2023 11:20 AM CDT): His lipids are not well controlled. His triglycerides are significantly elevated, which is likely related to poor glycemic control and use of prednisone. Continue rosuvastatin. Assessment & Plan (03/25/2023 10:25 AM LAP CUTTER): Component Ref Range & Units 06/07/22 1348 CHOLESTEROL 242 HDL 44 TRIGLYCERIDES 575 NON HDL CHOLESTEROL 198 CHOL/HDL RATIO 5.5 LDL (CALCULATED) n/a Lipid panel reviewed with triglycerides elevated and uncalculated LDL Currently on rosuvastatin 10 this needs to be increased to 40 given his history -we will plan to repeat in 2 to 3 months. We will add additional at that time if required. Assessment & Plan (09/13/2022 10:09 AM CDT): His lipids are not well controlled. His triglycerides are significantly elevated, which is likely related to poor glycemic control and use of prednisone. Diabetes mellitus due to und erlying condition with stage 3a chronic kidney disease, with long-term current use of insulin ([facility]) Assessment & Plan (09/26/2023 11:20 AM CDT): His diabetes does not seem well-controlled given that his hemoglobin A1c was 10.8%. I am guessing his diabetes is not well-controlled because of prednisone use for polymyalgia rheumatica. I encouraged good glycemic control as this is a risk factor for coronary artery disease. He is currently using insulin. Resolved Problems Problem Noted Date Diagnosed Date Resolved Date Typical atrial flutter ([facility] HHS/HCC) 09/25/2019 09/13/2022 Overview (09/25/2019): Postoperative paroxysmal. ASHD (arteriosclerotic heart disease) 09/13/2022 Encounters Date Type Department Care Team Description 11/08/2024 Results Follow-Up [facility] [address] [place] [address] Pati Alford, RN LIPID PANEL 11/06/2024 9:05 AM CDT - 11/06/2024 11:59 PM CDT Hospital Encounter [facility] [id number] [place] [address] Tammie Warren PA Discharge Disposition: Home or Self Care (Routine Discharge) 11/06/2024 Travel 11/02/2024 MyChart Message Enc [facility] [address] [address] Rowdy Arana MD Nausea 10/29/2024 MyChart Message Enc [facility] [address] [address] Rowdy Arana MD Question on next blood work 10/27/2024 Orders Only [address] [address] Frederick Billingsley MD 10/25/2024 Therapy Plan [facility] [address] [place] [address] Troy Larsen MD 10/22/2024 12:15 PM CDT Office Visit [facility] [address] [place] [phone] Rowdy Arana MD Lanter, Megan N, PA Coronary Artery Disease 10/22/2024 Travel 10/21/2024 9:27 AM CDT - 10/21/2024 12:16 PM CDT Hospital Encounter [facility] [address] [place] [address] Troy Larsen MD Discharge Disposition: Home or Self Care (Routine Discharge) 10/21/2024 Travel 10/07/2024 8:55 AM CDT - 10/07/2024 11:59 PM CDT Hospital Encounter [facility] [address] [place] [address] Puma Hassan MD Discharge Disposition: Home or Self Care (Routine Discharge) 10/07/2024 Orders Only [facility] [id number] [place] [address] Puma Hassan MD 10/07/2024 Travel 08/26/2024 9:26 AM CDT - 08/26/2024 12:25 PM CDT Hospital Encounter [facility] [address] [place] [address] Troy Larsen MD Discharge Disposition: Home or Self Care (Routine Discharge) 08/26/2024 Travel from Last 3 Months Immunizations Immunization Administration Dates Next Due Fluad influenza vaccine, Juan drivalent (aIIV4), Inactivated, adjuvanted, preservative free, 0.5 mL,IM use 02/09/2019 Fluzone High Dose - >Age 65 (Prefilled Syringe) 01/18/2020,02/11/2018,03/27/2016 Influenza (Generic) 01/26/2015, 4,01/21/2013,2011,02/20/2011 Pneumococcal (Prevnar 13) 08/01/2014 Pneumovax 06/01/2013 Shingrix 10/28/2018,07/15/2018 Family History Medical History Relation Comments No Known Problems Brother Colon Cancer Father No Known Problems Maternal Aunt No Known Problems Maternal Uncle CHF Mother No Known Problems Paternal Aunt No Known Problems Paternal Uncle No Known Problems Sister 1 No Known Problems Sister 2 Relation Status Comments Brother CAD, HTN, HLD, C ABG Father (Age 82) of colon cancer Maternal Aunt Maternal Uncle Mother (Age 80) Paternal Aunt Paternal Uncle Sister 1 Alive Sister 2 Alive Social History Tobacco Use Types Packs/Day Years Used Date Smoking Tobacco: Never Smokeless Tobacco: Never Tobacco Cessation:Counseling Given: Not Answered Comments:patient doesnt smoke Alcohol Use Standard Drinks/Week Comments No 0 (1 standard drink = 0.6 oz pur e alcohol) PHQ-2 Answer Date Recorded PHQ-2 Score - If the patient scores above 3, please move on to questions 3-9 0 12/08/2020 Sex and Gender Information Value Date Recorded Sex Assigned at Male 06/02/2024 10:06 AM LAP CUTTER Legal Sex Male 10:22 PM CDT Gender Identity Male 05/23/2021 4:41 PM LAP CUTTER Sexual Orientation Straight 05/23/2021 4: 41 PM LAP CUTTER 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 Job End Date 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 [employer] Not on file Not on fi le Not on file Not on file Not on file Not on file Not on file Last Filed Vital Signs Vital Sign Reading Time Taken Comments Blood Pressure 110/70 10/22/2024 11:53 AM CDT Pulse 88 10/22/2024 11:53 AM CDT Temperature 36.2 C (97.2 F) 10/21/2024 12:01 PM CDT Respiratory Rate 16 10/21/2024 12:01 PM CDT Oxygen Saturation 95% 10/21/2024 12:01 PM CDT Inhaled Oxygen Concentration - - Weight 90.3 kg (199 lb) 10/22/2024 11:53 AM CDT Height 175.3 cm (5' 9) 10/22/2024 11:53 AM CDT Body Mass Index 29.39 10/22/2024 11:53 AM CDT Plan of Treatment Upcoming Encounters Date Type Department Care Team (Late st Contact Info) Description 12/16/2024 10:00 AM CDT Appointment [facility] [address] [place], [place] [phone] Troy Larsen MD [address] [place] [address] [phone] 04/29/2025 12:15 PM LAP CUTTER [facility] [address] [place] [address] Rowdy Arana MD [address] [phone] Health Maintenance Due Date Last Done Comments Kidney Health Evaluation 1943 Diabetes: Retinopathy Eye Exam 11/22/1961 DTaP, Tdap and Td Vaccines (1 - Tdap) 11/22/1962 Annual Medicare Wellness Visit 11/22/2008 RSV Immunization or 60+ Years (1 - 1-dose 75+ series) 11/22/2018 COVID-19 Vaccine (1 - season) 2024 PHQ-2 (Physician [place]) 05/12/2024 Hemoglobin A1C 08/31/2024 06/02/2024, 10/0 07/2023, 10/24/2023, Additional history exists Lipid Panel 11/06/2025 11/06/2024, 050 11/2023, 03/31/2023, Additional history exists Pneumococcal Vaccine: 50+ Years Completed 08/01/2014, 06/01/2013 Zoster Vaccines Completed 10/28/2018, 07/15/2018 Meningococcal B Vaccine Aged Out No l onger eligible based on patient's age to complete this topic Meningococcal Vaccine Aged Out No stacey nelly eligible based on patient's age to complete this topic RSV Immunizations Under 20 Months Aged Out No longer eligible based on patient's age to complete this topic Procedures Procedure Name Priority Date/Time Associated Diagnosis Comments LIPID PANEL Routine 11/06/2024 9:20 AM CDT Mixed hyperlipidemia TESTOSTERONE, TOTAL Routine 10/07/2024 9 :00 AM CDT Malignant neoplasm of prostate ([facility]) PROSTATE SPECIFIC ANTIGEN,TOTAL Routine 10/07/2024 9:00 AM CDT Malignant neoplasm of prostate ([facility]) HEMOGLOBIN, GLYCOSYLATED Routine 06/02/2024 10:12 AM LAP CUTTER Inadequately controlled diabetes mellitus ([facility]) from Last 3 Months or Most Recently Relevant to Health Maintenance Results * (ABNORMAL) LIPID PANEL (11/06/2024 9:20 AM CDT) CHOLESTEROL 127 <200.0 MG/DL 11/06/2024 9:44 AM CDT [facility] TRIGLYCERIDES 257(H) <150 MG/DL 11/06/2024 9:[address] [facility] HDL 44 >40.0 MG/DL 11/06/2024 9:[address] [facility] LDL (CALCULATED) 32 <100 MG/DL 11/06/2024 9:[address] [facility] Comment:CALCULATED USING THE FRIEDEWALD EQUATION NON HDL CHOLESTEROL 83 <130 MG/DL 11/06/2024 9:[address] [facility] CHOL/HDL RATIO 2.9 0.0 - 4.5 11/06/2024 9:[address] [facility] VLDL CALCULATION 51 5 - 55 MG/DL 11/06/2024 9:[address] [facility] LIPID INTERPRETATION 11/06/2024 9:[address] [facility] Comment: NIH CONCENSUS REPORT RECOMMENDATIONS: ADULT CHILD LOW RISK: CHOLESTEROL <200 <170 TRIGLYCERIDE <150 --- HDL >=60 --- LDL <100 <110 BORDERLINE: CHOLESTEROL 200-239 170-199 TRIGLYCERIDE 150-199 --- HDL 40-59 --- LDL 100-159 110-129 HIGH RISK: CHOLESTEROL >=240 >=200 TRIGLYCERIDE >=200 --- HDL <40 --- LDL >=160 >=130 11/06/2024 9:20 AM CDT us T[facility] Final Result [facility] [address] [place] [address], * PROSTATE SPECIFIC ANTIGEN,TOTAL (10/07/2024 9:00 AM CDT) PSA 0.59 <4.00 NG/ML 10/07/2024 9:[address] [facility] Comment: Test was performed using the Siemens method. Results obtained with other assay methods or kits cannot be used interchangeably with results obtained by the Siemens method. 10/07/2024 9:00 AM CDT Puma Hassan MD LABORATORY Final Result Performing Organization Address [facility] Co de Phone Number [facility] [address] [place] [address], [place] [phone] * (ABNORMAL) TESTOSTERONE, TOTAL (10/07/2024 9:00 AM CDT) Pathologist [facility] TESTOSTERONE TOTAL 155(L) 250 - 1,100 ng/dL 10/11/2024 7:47 AM CDT [facility] Comment: Men with clinically significant hypogonadal symptoms and testosterone values repeatedly in the range of the 200-300 ng/dL or less, may benefit from testosterone treatment after adequate risk and benefits counseling. For additional information, please refer to http://education.[employer]/faq/ [email or web address] (This link is being provided for informational/ educational purposes only.) This test was developed and its analytical performance characteristics have been determined by [facility] [place], [place]. It has not been cleared or approved by the U.S. Food and Drug Administration. This assay has been validated pursuant to the CLIA regulations and is used for clinical purposes. Test Performed by [facility], [facility] [place], [address] [place] [address] Jack Kelly M.D., Ph.D., Director of Laboratories , CLIA [id number] 10/07/2024 9:00 AM CDT Puma Hassan MD LABORATORY Final Result Performing Organization Address [facility]/ZIP Co de Phone Number [facility] [id number] [place], [place] , [place] [phone] * (ABNORMAL) HEMOGLOBIN, GLYCOSYLATED (06/02/2024 10:12 AM LAP CUTTER) HGB A1C 12.0(H) <5.7 % 06/02/2024 11:10 AM [facility] Comment: INCREASED RISK OF DIABETES <5.7% NON-DIABETES 5.7-6.4% INCREASED RISK FOR FUTURE DIABETES > OR = 6.5 CONSISTENT WITH DIABETES STANDARDS OF MEDICAL CARE IN DIABETES-2010 DIABETES CARE, 33(SUPP 1): S1-S61,2010 ESTIMATED AVG GLUCOSE 298 mg/dL 06/02/2024 11:10 AM [facility] 06/02/2024 10:1 2 AM LAP CUTTER Uvaldo Arambula MD LABORATORY Final Result [facility] [address] [place] [address], from Last 3 Months or Most Recently Relevant to Health Maintenance Insurance MEDICARE MEDICARE MEDICARE Advance Directives * Full Code (Latest Code Status on File) Date Activated Date Inactivated Comments 09/22/2019 2:39 PM 09/28/2019 4:59 PM Care Teams Machine Mover Relationship Specialty Start Date End Date Uvaldo Arambula MD [address] [place] [phone] PCP - General INTERNAL MEDICINE 09/17/16 Rowdy Arana MD [address] [address] Consulting Physician INTERVENTIONAL CARDIOLOGY 08/07/23 Janeen Bansal MD [address] [address] Consulting Physician NEPHROLOGY 08/07/23 Troy Larsen MD [address] [place] [address] Physician RHEUMATOLOGY 08/07/23
--- OUTSIDE RECORDS SUMMARY | 2024-11-19 11:18 | XMS_ITS | Encounter Summary ---
Author Organization [facility] Address [facility] [place] [address] Care Team Providers Care Day Care Aide Name Role Phone Uvaldo Arambula MD Primary Care Provider [phone] Rowdy Arana MD Unavailable [phone] Janeen Bansal MD Unavailable [phone] Troy Larsen MD Unavailable [phone] Encounter Details Date Type Department Care Team (Late st Contact Info) Description 11/08/2024 [facility] [address] [place] [address] Pati Alford, RN LIPID PANEL Social History Tobacco Use Types Packs/Day Years [...] Sex Assigned at Male 06/02/2024 10:06 AM [employer] Legal Sex Male 10:22 PM CDT Gender Identity Male 05/23/2021 4:41 PM [employer] Sexual Orientation Straight 05/23/2021 4: 41 PM [employer] 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 [...] Date Author Status No 09/22/2019 7:01 AM BETITOT Rachel Sharma RN Active documented in this encounter Plan of Treatment Upcoming Encounters Date Type Department Care Team (Late st Contact Info) Description 12/16/2024 10:00 AM CDT Appointment [facility] [address] [place] [address] Troy Larsen MD [address] [place] [address] 04/29/2025 12:15 PM [employer] [facility] [address] [place] [phone] Rowdy Arana MD [address] [address] documented as of this encounter Visit Diagnoses Not on filedocumented in this encounter Additional Health Concerns Assessment Noted Time PHQ-9 Depression Total Score: 0 12/09/19 21 10:04 AM CDT documented as of this encounter Care Teams Day Care Aide Relationship Specialty Start Date End Date Uvaldo Arambula MD [address] [place] [phone] PCP - General INTERNAL MEDICINE 09/17/16 Rowdy Arana MD [address] [address] Consulting Physician INTERVENTIONAL CARDIOLOGY 08/07/23 Janeen Bansal MD [address] [address] Consulting Physician NEPHROLOGY 08/07/23 Troy Larsen MD [address] [place] [phone] Physician RHEUMATOLOGY 08/07/23 documented as of this encounter
--- OUTSIDE RECORDS SUMMARY | 2024-11-19 11:18 | XMS_ITS | Encounter Summary ---
Author Organization [facility] Address [facility] [place] [address] Care Team Providers Care Pastry Cook Helper Name Role Phone Uvaldo Arambula MD Primary Care Provider [phone] Rowdy Arana MD Unavailable [phone] Janeen Bansal MD Unavailable [phone] Troy Larsen MD Unavailable [phone] Encounter Details Date Type Department Care Team (Late st Contact Info) Description 04/06/2024 [employer] Message [facility] [id number] [place] [phone] Rowdy Arana MD [address] [phone] blood test Social History Tobacco Use Types Packs/Day Years [...] Sex Assigned at Male 06/02/2024 10:06 AM OIL TANK CAR CLEANER Legal Sex Male 10:22 PM CDT Gender Identity Male 05/23/2021 4:41 PM OIL TANK CAR CLEANER Sexual Orientation Straight 05/23/2021 4: 41 PM OIL TANK CAR CLEANER 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 Job End Date 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 TANK CAR CLEANER documented in this encounter Plan of Treatment Upcoming Encounters Date Type Department Care Team (Late st Contact Info) Description 12/16/2024 10:00 AM CDT Appointment [facility] [address] [place] [address] Troy Larsen MD [address] [place] [id number] 04/29/2025 12:15 PM OIL TANK CAR CLEANER Office [facility] [place] [facility] [address] [place] [phone] Rowdy Arana MD [facility] [address] [place] [address] documented as of this encounter Visit Diagnoses Not on filedocumented in this encounter Additional Health Concerns Assessment Noted Time PHQ-9 Depression Total Score: 0 12/09/19 21 10:04 AM CDT documented as of this encounter Care Teams Pastry Cook Helper Relationship Specialty Start Date End Date Uvaldo Arambula MD [address] [place] [phone] PCP - General INTERNAL MEDICINE 09/17/16 Rowdy Arana MD [facility] [address] [place] [address] Consulting Physician INTERVENTIONAL CARDIOLOGY 08/07/23 Janeen Bansal MD [facility] [address] [place] [address] Consulting Physician NEPHROLOGY 08/07/23 Troy Larsen MD [address] [place] [address] Physician RHEUMATOLOGY 08/07/23 documented as of this encounter
--- OUTSIDE RECORDS SUMMARY | 2024-11-19 11:18 | XMS_ITS | Encounter Summary ---
Author Organization [facility] Address [facility] [place] [address] Care Team Providers Care Classroom Monitor Name Role Phone Uvaldo Arambula MD Primary Care Provider [phone] Rowdy Arana MD Unavailable [phone] Janeen Bansal MD Unavailable [phone] Troy Larsen MD Unavailable [phone] Encounter Details Date Type Department Care Team (Late st Contact Info) Description 11/02/2024 [employer] Message [facility] [id number] [place] [phone] Rowdy Arana MD [address] [address] Nausea Social History Tobacco Use Types Packs/Day Years [...] Sex Assigned at Male 06/02/2024 10:06 AM INSTRUCTIONAL WRITER Legal Sex Male 10:22 PM CDT Gender Identity Male 05/23/2021 4:41 PM INSTRUCTIONAL WRITER Sexual Orientation Straight 05/23/2021 4: 41 PM INSTRUCTIONAL WRITER 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 There is still the potential thathe experiences nausea with mounjaro since it is a common side effect, but it may be to a lesser extent. All of these medications can cause nausea due to how they work on the body, so there is no guarantee that Mounjaro won't. Would recommend reaching out to PCP to see if this is an option/covered by insurance. documented in this encounter Plan of Treatment Upcoming Encounters Date Type Department Care Team (Late st Contact Info) Description 12/16/2024 10:00 AM CDT Appointment [facility] [address] [place] [address] Troy Larsen MD [address] [address] 04/29/2025 12:15 PM INSTRUCTIONAL WRITER Office [facility] [place] [facility] [address] [place] [address] Rowdy Arana MD [facility] [address] [place] [address] documented as of this encounter Visit Diagnoses Not on filedocumented in this encounter Additional Health Concerns Assessment Noted Time PHQ-9 Depression Total Score: 0 12/09/19 21 10:04 AM CDT documented as of this encounter Care Teams Classroom Monitor Relationship Specialty Start Date End Date Uvaldo Arambula MD [address] [place] [address] PCP - General INTERNAL MEDICINE 09/17/16 Rowdy Arana MD [facility]. [address] [place] [address] Consulting Physician INTERVENTIONAL CARDIOLOGY 08/07/23 Janeen Bansal MD [facility]. [address] [place] [address] Consulting Physician NEPHROLOGY 08/07/23 Troy Larsen MD [address] [place] [address] Physician RHEUMATOLOGY 08/07/23 documented as of this encounter
== END 2024-11-19 11:15 | disposition home or self-care (01) ==
LOC: CHSIMG 11:16
PROVIDERS: PCP Internal Medicine; Visit Provider Internal Medicine
DX: M79.662 Pain in left lower leg (principal); M79.89 Other specified soft tissue disorders
CPT/HCPCS: 93970